=== PATIENT | male | born 1955 | race Caucasian/White ===

== ENCOUNTER → 2017-06-26 | Outpatient (CLI) | payer OTHER ==
[~2017-06-26] MED LIST: ACET-1256 PO; ALBU1NEB10 INH; AMLO-110 PO; AMPHOTERICIN B NEB; AZIT250T PO; CALC0.2510 PO; CALCTAB5 PO; CLON0.5T3 PO; CLR10 PO; ERGO1TAB10 PO; FAMO20TA11 PO; MAGNTAB17 PO; METO100T14 PO; OMEG10007 PO; POTA20TA16 PO; PRED-301 PO; PSEU60TA80 PO; RIZA1TAB11 PO; SIRO0.5T PO; SULF-183 PO; TACR0.5C3 PO; TACR1CAP PO; [UNRECOGNIZED DRUG - OTHER] NEB
[2017-06-26 11:42] LABS: BLOOD UREA NITROGEN 35 mg/dl (7-18); BUN/CREATININE RATIO 13.1 (10-20); CALCIUM 8.9 mg/dl (8.5-10.1); CARBON DIOXIDE 26 mmol/L (21-32); CHLORIDE 107 mmol/L (98-107); GLUCOSE 97 mg/dl (70-99); MAGNESIUM 1.5 mg/dl (1.8-2.4); POTASSIUM 3.1 mmol/L (3.5-5.1); SODIUM 141 mmol/L (136-145)
[2017-06-26 12:29] LABS: URINE APPEARANCE CLEAR (CLEAR); URINE BILIRUBIN NEG (NEG); URINE COLOR YELLOW; URINE EPITHELIAL CELL AUTO 0-5 /lpf (0-5); URINE NITRITE NEG (NEG); UROBILINOGEN NEG (NEG)
[2017-06-26 12:31] LABS: MANUAL MICROSCOPIC REQUIRED? NO; REVIEW REQ? NO
== END | disposition home or self-care (01) ==
LOC: C.LAB 10:24
PROVIDERS: ATTEND Internal Medicine Nephrology
DX: T86.819 Unspecified complication of lung transplant (principal); Y83.0 Surgical operation with transplant of whole organ as the cause of abnormal reaction of the patient, or of later complication, without mention of misadventure at the time of the procedure

== ENCOUNTER → 2017-06-30 | Outpatient (CLI) | payer OTHER ==
--- NOTE | 2017-06-30 12:08 | DIAGNOSTIC IMAGING REPORT ---
ULTRASOUND KIDNEYS AND BLADDER CLINICAL HISTORY: Chronic kidney disease. COMPARISON STUDY: Renal ultrasound dated 02/20/2014. TECHNIQUE: Real-time, grayscale, and color flow sonography of the kidneys and bladder is performed. Images are reviewed in the transverse and longitudinal planes. FINDINGS: Kidneys: The kidneys demonstrate cortical atrophy. The right kidney measures 9.9 x 4.8 x 5.2 cm and the left kidney measures 10.1 x 4.7 x 4.6 cm. There is no hydronephrosis. No shadowing renal calculi are identified. There is no sonographic evidence of contour deforming renal mass lesion. No perinephric fluid is identified. Bladder: The bladder is normal in appearance. Bilateral ureteral jets were seen. IMPRESSION: 1. The kidneys demonstrate cortical atrophy and are without hydronephrosis. 2. The bladder is normal as visualized. Electronically signed by: Zaid Arthur M.D. 06/30/2017 12:07 PM Dictated Date/Time: 06/30/2017 12:03 PM
== END | disposition home or self-care (01) ==
LOC: C.ULTR 11:21
PROVIDERS: ATTEND Internal Medicine Nephrology
DX: T86.819 Unspecified complication of lung transplant (principal); Y83.0 Surgical operation with transplant of whole organ as the cause of abnormal reaction of the patient, or of later complication, without mention of misadventure at the time of the procedure; N18.9 Chronic kidney disease, unspecified; E83.40 Disorders of magnesium metabolism, unspecified

== ENCOUNTER → 2018-02-03 | Outpatient (CLI) | payer OTHER ==
--- NOTE | 2018-02-05 12:17 | PULMONARY FUNCTION TEST ---
Spirometry shows a severe reduction in both forced vital capacity and FEV1 with a mildly decreased FEV1/FVC ratio. The pattern would be that of moderate to severe restriction, likely combined with mild obstruction. No prior studies were available for comparison.
== END | disposition home or self-care (01) ==
LOC: C.RC 10:36
PROVIDERS: ATTEND Internal Medicine Pulmonary Disease
DX: T86.818 Other complications of lung transplant (principal); Z87.898 Personal history of other specified conditions; X58.XXXA Exposure to other specified factors, initial encounter

== ENCOUNTER → 2018-02-28 | Outpatient (CLI) | payer OTHER ==
[~2018-02-28] MED LIST changes: +POTA-639 PO; -POTA20TA16 PO
--- NOTE | 2018-02-28 12:07 | DIAGNOSTIC IMAGING REPORT ---
(CHEST) THORAX WITHOUT CT DOSE: 233.25 mGy.cm HISTORY: Lung transplant. Follow-up. TECHNIQUE: Multiaxial CT images of the chest were performed without contrast. A dose lowering technique was utilized adhering to the principles of ALARA. COMPARISON: Chest 12/08/2010. FINDINGS: The patient is status post bilateral lung transplant. Left apical densities favor scarring. No pneumothorax. Mild interstitial thickening at the left lung base. No pericardial effusions. 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 Trace left pleural effusion. Tree-in-bud nodular and a few small patchy airspace opacities seen within the base of the right lower lobe and right middle lobe with a few partially opacified right lower lobe bronchi. This is consistent with an infectious bronchiolitis/pneumonia. There is a stent within the right bronchus intermedius. There is moderate focal soft tissue thickening within the stent resulting and moderate narrowing of the stent. There is mild focal narrowing of approximately 10% within the distal left main bronchus. This likely represents the site of anastomosis from the prior lung transplant. Subtle groundglass density within the right lung apex on image 29. This is of doubtful clinical significance. No suspicious lytic or blastic osseous lesions. Old bilateral postthoracotomy changes are noted. A left jugular Port-A-Cath terminates in the distal SVC. The visualized liver and adrenal glands are unremarkable. Normal caliber aorta. The heart is borderline enlarged. This remains unchanged. No mediastinal or hilar lymphadenopathy. IMPRESSION: 1. Bilateral lung transplant. There is a stent within the right bronchus intermedius. There is a rind of soft tissue within the lumen of the stent along the periphery resulting in moderate stenosis. Bronchoscopy may help for further evaluation. There is also mild focal stenosis within the distal left mainstem bronchus corresponding to the site of anastomosis. 2. Patchy and tree-in-bud nodular opacity seen within the base of the right lower lobe and right middle lobe with a few opacified distal bronchi. This is consistent with infectious bronchiolitis and could be due to aspiration. 3. 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 4. Trace left pleural effusion. 5. Left apical density favors scarring. Electronically signed by: Kumar Lau M.D. 02/28/2018 12:05 PM Dictated Date/Time: 02/28/2018 11:51 AM
== END | disposition home or self-care (01) ==
LOC: C.CTS 11:16
PROVIDERS: ATTEND Internal Medicine Pulmonary Disease
DX: R06.02 Shortness of breath (principal); J98.09 Other diseases of bronchus, not elsewhere classified; T86.819 Unspecified complication of lung transplant; R91.8 Other nonspecific abnormal finding of lung field

== ENCOUNTER → 2018-03-08 | Outpatient (CLI) | payer OTHER ==
--- NOTE | 2018-03-09 23:20 | PULMONARY FUNCTION TEST ---
Spirometry showed a severe reduction in both forced vital capacity and FEV1 with a FEV1/FVC ratio of 74%. The pattern would be that of severe restriction, possibly combined with mild obstruction. The history given is that the patient is post-lung transplant. Comparison with prior study done 02/03/2018 shows slight increase in forced vital capacity and FEV1, but not a significant change. These results are improved compared with prior study done 12/01/2016 and 10/06/2016. Advise clinical correlation.
== END | disposition home or self-care (01) ==
LOC: C.RC 11:04
PROVIDERS: ATTEND Internal Medicine Pulmonary Disease
DX: T86.818 Other complications of lung transplant (principal); Z87.898 Personal history of other specified conditions; Y83.6 Removal of other organ (partial) (total) as the cause of abnormal reaction of the patient, or of later complication, without mention of misadventure at the time of the procedure

== ENCOUNTER 2021-08-26 23:34 | Inpatient (IN) ==
--- NOTE | 2021-08-27 00:07 | Emergency Department Note ---
History of Present Illness General Chief complaint: Respiratory Problems Stated complaint: HAVING A HARD TIME BREATHING Time Seen by Provider: 08/27/21 00:03 Source: patient and family (Sister) History of Present Illness Provider complaint: Short of breath Onset (ago): hour(s) Location: chest Severity: severe Pain Consistency: + constant Maximum Pain Intensity: 9 Quality: + other (Short of breath) Relieved By: + other (Oxygen) Associated symptoms: + cough, + headaches and + shortness of breath; no chest pain, no fever/chills or no nausea/vomiting This is a 66-year-old male status post bilateral lung transplantation in 2011 due to idiopathic pulmonary fibrosis presenting with shortness of breath starting several hours ago. The patient's sister and the patient are both providing history. He developed a cough approximately 3 to 4 days ago. He has had no fevers. He is not vaccinated for COVID-19. His chief ultrasound technologist did not feel he was strong enough for it. He is currently undergoing radiation treatment to his head for squamous cell carcinoma. Today he started get short of breath which has gotten progressively worse. He was short of breath last night but was doing well throughout the day. He then started having some shortness of breath at 10 PM. He is not on oxygen at home. He denies any chest pain, abdominal pain, vomiting or diarrhea. He does state that both of his legs have been swollen over the past 2 days but he denies any pain. He has had no history of PE or DVT. He does complain of pain to his head from the squamous cell cancer. He is on OxyContin but states he has not been taking it. Home Medications Medication Instructions Recorded Confirmed Type azithromycin 250 mg tablet 250 mg PO .COMPLEX 10/30/19 08/27/21 History cetirizine 10 mg tablet 10 mg PO DAILY 10/30/19 08/27/21 History ergocalciferol (vitamin D2) 1,250 50,000 units PO .COMPLEX 10/30/19 08/27/21 History mcg (50,000 unit) capsule famotidine 20 mg tablet 20 mg PO BID 10/30/19 08/27/21 History magnesium chloride 64 mg 128 mg PO TID tab 10/30/19 08/27/21 History (magnesium chloride) tablet,delayed release metoprolol tartrate 100 mg tablet 100 mg PO BID 10/30/19 08/27/21 History omega-3 fatty acids 1,000 mg 1,000 mg PO DAILY 10/30/19 08/27/21 History capsule (Fish Oil Concentrate) potassium chloride 20 mEq 40 meq PO BID tab 10/30/19 08/27/21 History tablet,extended release(part/cryst) prednisone 5 mg tablet 5 mg PO DAILY 10/30/19 08/27/21 History sirolimus 0.5 mg tablet See Rx Instructions PO .COMPLEX 10/30/19 08/27/21 History sulfamethoxazole 400 1 tab PO .COMPLEX 10/30/19 08/27/21 History mg-trimethoprim 80 mg tablet amitriptyline 10 mg tablet See Rx Instructions PO DAILY 04/16/21 08/27/21 History cholecalciferol (vitamin D3) 50 50 mcg PO DAILY tab 04/16/21 08/27/21 History mcg (2,000 unit) tablet lorazepam 0.5 mg tablet 0.5 mg PO DAILY PRN 04/16/21 08/27/21 History tacrolimus 0.5 mg capsule, 2 mg PO .COMPLEX cap 04/16/21 08/27/21 History immediate-release amlodipine 2.5 mg tablet 5 mg PO DAILY #180 tab 08/26/21 08/27/21 Rx Allergies Allergy/AdvReac Type Severity Reaction Status Date / Time colistin Allergy Mild cough Verified 08/27/21 00:42 sirolimus [From Rapamune] Allergy Mild Rash Verified 08/27/21 00:42 tiotropium AdvReac Severe UNABLE TO Verified 08/27/21 00:42 VOID fluticasone AdvReac Intermediate THRUSH,RASH Verified 08/27/21 00:42 HEADACHE salmeterol AdvReac Intermediate THRUSH,RASH Verified 08/27/21 00:42 HEADACHE aspirin AdvReac Unknown CONTRAINDIC Verified 08/27/21 00:42 ATED NSAIDS (Non-Steroidal AdvReac Unknown CONTRAINDIC Verified 08/27/21 00:42 Anti-Inflamma ATED Past Med/Surg History Medical History Acute renal injury Benign hypertension (04/03/13) CVA (cerebral infarction) (03/03/14) Double lung transplant (04/03/13) Hypertensive emergency (03/03/14) Interstitial lung disease Migraine Osteoporosis, unspecified Right sided weakness SCC (squamous cell carcinoma) Situational depression 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 Surgical History History of colonoscopy History of lung transplant lung transplant , double S/P ear surgery Family History Father Hypertension Kidney disease Mother Hypertension Kidney disease Stroke Denies family history of Ovarian cancer Prostate cancer Myocardial infarction Breast cancer Colorectal cancer Social History Smoking Status: Never smoker Second Hand Exposure: No; Hx Alcohol Use: No Hx Substance Use: No Preferred Language: Salvadorean Communication Ability: Effective Visual Impairment: No Limitations Hearing Ability: Normal Continuous Conveyor Screen Drier Required: No Beliefs That Will Affect Care: None marital status: Single Current Living Situation: Family current occupational status: disabled Feels Safe at Home: Yes Childhood Exposure to Second-Hand Smoke: No caffeine: Yes during the past year weight has: increased > 10 lbs Dental Care, Regularly: No Physical Activity Frequency: Daily Seatbelt Use: always Sunscreen Use: Yes Review of Systems See HPI for pertinent positives & negatives. and A total of 10 systems reviewed and were otherwise negative Physical Exam Vital Signs Vital Signs - 24 hr 08/26/21 23:43 08/26/21 23:57 08/27/21 00:00 Temperature 36.5 C Temperature Source Temporal Artery Scan Pulse Rate 127 H 153 H 152 H Pulse Rate from SpO2 Sensor 152 H 152 H Respiratory Rate 40 H 34 H 35 H Blood Pressure 126/92 Blood Pressure Mean 103 Pulse Oximetry 85 L 83 L 88 L Oxygen Delivery Method Room Air Oxygen Flow Rate Sepsis Recent Fever Within 48 Hours No Sepsis New/Unexplained Change in Mental Status N/A Sepsis Action Taken by Nursing No Action Required 08/27/21 00:15 08/27/21 00:17 08/27/21 00:30 Temperature Temperature Source Pulse Rate 151 H 150 H Pulse Rate from SpO2 Sensor 149 H 150 H Respiratory Rate 26 H 31 H Blood Pressure Blood Pressure Mean Pulse Oximetry 96 97 Oxygen Delivery Method Oxymask Oxygen Flow Rate Sepsis Recent Fever Within 48 Hours Sepsis New/Unexplained Change in Mental Status Sepsis Action Taken by Nursing 08/27/21 00:45 08/27/21 01:00 08/27/21 01:15 Temperature Temperature Source Pulse Rate 144 H 137 H 135 H Pulse Rate from SpO2 Sensor 144 H 137 H 136 H Respiratory Rate 21 Blood Pressure 113/85 110/79 104/73 Blood Pressure Mean 94 89 83 Pulse Oximetry 97 97 96 Oxygen Delivery Method Oxymask Oxymask Oxymask Oxygen Flow Rate 6 6 6 Sepsis Recent Fever Within 48 Hours Sepsis New/Unexplained Change in Mental Status Sepsis Action Taken by Nursing 08/27/21 01:30 08/27/21 01:45 08/27/21 02:03 Temperature Temperature Source Pulse Rate 134 H 141 H 145 H Pulse Rate from SpO2 Sensor 134 H Respiratory Rate 25 H 20 Blood Pressure 115/79 120/82 120/82 Blood Pressure Mean 91 94 Pulse Oximetry 97 95 Oxygen Delivery Method Oxymask Oxymask Oxygen Flow Rate 6 6 Sepsis Recent Fever Within 48 Hours Sepsis New/Unexplained Change in Mental Status Sepsis Action Taken by Nursing Constitutional: Vital signs reviewed. Cannot speak in full sentences. Tachypneic. Cachectic. Ill-appearing. Eyes: Pupils are equal round reactive to light. Conjunctiva are noninjected. ENT: Pharynx is clear without erythema or exudate. Mucous membranes are moist. Neck supple without meningeal signs. Respiratory: Left lung with scattered rales in the lower field. Right lung has diffuse rhonchi and rales. Breath sounds are equal bilaterally. Cardiovascular: Tachycardic. Heart rate 150. GI: Soft, nondistended and nontender. Bowel sounds are present. Musculoskeletal: Bilateral pitting edema to the lower extremities. No lower extremity tenderness. Integumentary: No cyanosis. or jaundice. Squamous cell carcinoma to the head. Neurological: The patient is awake and alert. No focal deficits. Psychiatric: Normal affect. Not anxious appearing. Course Administered Medications Discontinued Medications Diltiazem HCl (Diltiazem Hcl 5 Mg/Ml 5 Ml Vial) 2.5 mg IV NOW STA Stop: 08/27/21 00:37 Last Admin: 08/27/21 00:43 Dose: 2.5 mg Documented by: [id number] Cosigned by: [id number] Diltiazem HCl (Diltiazem Hcl 5 Mg/Ml 5 Ml Vial) 2.5 mg IV ONCE ONE Stop: 08/27/21 00:54 Last Admin: 08/27/21 00:54 Dose: 2.5 mg Documented by: [id number] Cosigned by: [id number] Fentanyl Citrate (Fentanyl Citrate 100 Mcg/2 Ml Vial) 50 mcg IV NOW STA Stop: 08/27/21 01:19 Last Admin: 08/27/21 02:02 Dose: 50 mcg Documented by: [id number] Piperacillin Sod/Tazobactam Sod (Zosyn) 4.5 gm in 120 mls @ 240 mls/hr IV NOW ONE Stop: 08/27/21 01:05 Last Admin: 08/27/21 00:43 Dose: 240 mls/hr Documented by: [id number] Azithromycin 500 mg/ Dextrose 255 mls @ 127.5 mls/hr IV NOW STA Stop: 08/27/21 02:35 Last Admin: 08/27/21 01:29 Dose: 127.5 mls/hr Documented by: [id number] Linezolid (Zyvox) 600 mg in 300 mls @ 200 mls/hr IV NOW STA Stop: 08/27/21 02:13 Last Admin: 08/27/21 01:29 Dose: 200 mls/hr Documented by: [id number] Magnesium Sulfate/Dextrose (Magnesium Sulfate / D5w) 1 gm in 100 mls @ 100 mls/hr IV NOW STA Stop: 08/27/21 01:58 Last Admin: 08/27/21 02:02 Dose: 100 mls/hr Documented by: [id number] Metoprolol Tartrate (Metoprolol Tartrate 1 Mg/Ml Vial) 2.5 mg IV NOW STA Stop: 08/27/21 01:43 Last Admin: 08/27/21 02:03 Dose: 2.5 mg Documented by: [id number] Ondansetron HCl (Ondansetron Inj 2 Mg/Ml 2 Ml Vial) 4 mg IV NOW STA Stop: 08/27/21 01:20 Last Admin: 08/27/21 02:42 Dose: 4 mg Documented by: [id number] Ticagrelor (Ticagrelor 90 Mg Tab) 180 mg PO ONE ONE Stop: 08/27/21 01:31 Last Admin: 08/27/21 02:19 Dose: 180 mg Documented by: [id number] Critical Care Time Critical Care Time: Yes Total Critical Care Time: 80 I have personally spent approximately 80 minutes of critical care time in the direct management of this patient. This includes bedside care, interpretation of diagnostic studies, and testing, discussion with consultants, patient, and family members, and other required patient management activities. These minutes are in excess of all separately billable procedures. Medical Decision Making Differential Diagnosis Pneumonia, COVID-19, respiratory failure, hypoxemia, ARDS, transplant rejection Medical Records Attestation: I reviewed the patient's medical records. I did perform a limited focused review of portions of the patient's old chart on the electronic medical record. The patient has had no recent pertinent visits to this hospital. He was seen by his primary care doctor earlier this month. Home Medications Current Medication List: was personally reviewed by me Laboratory Data Attestation: I reviewed the patient's lab results. Result diagrams: 08/27/21 00:14 08/27/21 00:14 Lab Results 08/27/21 08/27/21 08/27/21 Range/Units 00:14 00:14 00:14 WBC 12.09 H (4.8-10.8) K/uL RBC 3.94 L (4.7-6.1) M/uL Hgb 11.0 L (14.0-18.0) g/dL POC Hgb (14.0-18.0) g/dl Hct 34.7 L (42-52) % POC Hct (42-52) % MCV 88.1 (80-100) fL MCH 27.9 (25-34) pg MCHC 31.7 L (32-36) g/dL RDW Std Deviation 46.2 (36.4-46.3) fL RDW Coeff of Parish 14.2 (11.5-14.5) % Plt Count 393 (130-400) K/uL MPV 9.8 (7.4-10.4) fL Immature Gran % (Auto) 0.2 % Neut % (Auto) 79.3 % Lymph % (Auto) 12.1 % Maury % (Auto) 8.1 % Eos % (Auto) 0.1 % Baso % (Auto) 0.2 % Neut # (Auto) 9.60 H (1.4-6.5) K/uL Lymph # (Auto) 1.46 (1.2-3.4) K/uL Maury # (Auto) 0.98 H (0.11-0.59) K/uL Eos # (Auto) 0.01 (0-0.5) K/uL Baso # (Auto) 0.02 (0-0.2) K/uL Immature Gran # (Auto) 0.02 (0.00-0.02) K/uL Echinocytes 1+ PT 11.0 (9.0-12.0) Seconds INR 1.1 (0.9-1.1) APTT 25.9 (21.0-31.0) Seconds PTT Ratio 1.0 D-Dimer [id number] H* (0-500) ug/L FEU POC Sodium (135-144) mmol/L Sodium 135 L (136-145) mmol/L POC Potassium (3.3-5.0) mmol/L Potassium 4.7 (3.5-5.1) mmol/L POC Chloride (101-112) mmol/L Chloride 105 (98-107) mmol/L Carbon Dioxide 16 L (21-32) mmol/L POC Total CO2 (24-31) mmol/L Anion Gap 14.0 H (3-11) POC Anion Gap (16-25) mmol/L POC BUN (7-18) mg/dl BUN 50 H (7-18) mg/dl Creatinine 4.42 H (0.6-1.4) mg/dl POC Creatinine (0.6-1.3) mg/dl Est Cr Clr Drug Dosing Not Reportable Est GFR ( Amer) 15.2 ml/min Est GFR (Non-Af Amer) 13.1 ml/min BUN/Creatinine Ratio 11.4 (10-20) Glucose 273 H (70-99) mg/dl POC Glucose (other) (70-99) mg/dl Calcium 8.5 (8.5-10.1) mg/dl POC Ioniz Calcium Kathryn (1.12-1.32) mmol/l Magnesium 1.5 L (1.8-2.4) mg/dl Total Bilirubin 0.4 (0.2-1) mg/dl AST 98 H (15-37) U/L ALT 36 (12-78) U/L Alkaline Phosphatase 406 H (45-117) U/L Troponin I 15.400 H* (0-0.045) ng/ml C-Reactive Protein 9.60 H (0-0.29) mg/dl Total Protein 7.0 (6.4-8.2) gm/dl Albumin 2.6 L (3.4-5.0) gm/dl Globulin 4.4 H (2.5-4.0) gm/dl Albumin/Globulin Ratio 0.6 L (0.9-2) Adenovirus (PCR) (NotDetected) B. pertussis DNA (PCR) (NotDetected) B.parapertussis DNA PCR (NotDetected) C. pneumoniae DNA (PCR) (NotDetected) Coronavirus OC43 (PCR) (NotDetected) Coronavirus HKU1 (PCR) (NotDetected) Coronavirus 229E (PCR) (NotDetected) COVID-19 Eval Order SARS-CoV-2 (PCR) (NotDetected) Coronavirus NL63 (PCR) (NotDetected) Human Metapneumovir PCR (NotDetected) Influenza Type A (PCR) (NotDetected) Influ A Molecular Assay Influenza Type B (PCR) (NotDetected) Influ B Molecular Assay M. pneumoniae (PCR) (NotDetected) Parainfluenza 1 (PCR) (NotDetected) Parainfluenza 2 (PCR) (NotDetected) Parainfluenza 3 (PCR) (NotDetected) Parainfluenza 4 (PCR) (NotDetected) RSV (PCR) (NotDetected) Entero/Rhino (PCR) (NotDetected) 08/27/21 08/27/21 08/27/21 Range/Units 00:20 00:25 00:25 WBC (4.8-10.8) K/uL RBC (4.7-6.1) M/uL Hgb (14.0-18.0) g/dL POC Hgb 11.9 L (14.0-18.0) g/dl Hct (42-52) % POC Hct 35 L (42-52) % MCV (80-100) fL MCH (25-34) pg MCHC (32-36) g/dL RDW Std Deviation (36.4-46.3) fL RDW Coeff of Parish (11.5-14.5) % Plt Count (130-400) K/uL MPV (7.4-10.4) fL Immature Gran % (Auto) % Neut % (Auto) % Lymph % (Auto) % Maury % (Auto) % Eos % (Auto) % Baso % (Auto) % Neut # (Auto) (1.4-6.5) K/uL Lymph # (Auto) (1.2-3.4) K/uL Maury # (Auto) (0.11-0.59) K/uL Eos # (Auto) (0-0.5) K/uL Baso # (Auto) (0-0.2) K/uL Immature Gran # (Auto) (0.00-0.02) K/uL Echinocytes PT (9.0-12.0) Seconds INR (0.9-1.1) APTT (21.0-31.0) Seconds PTT Ratio D-Dimer (0-500) ug/L FEU POC Sodium 135 (135-144) mmol/L Sodium (136-145) mmol/L POC Potassium 4.7 (3.3-5.0) mmol/L Potassium (3.5-5.1) mmol/L POC Chloride 105 (101-112) mmol/L Chloride (98-107) mmol/L Carbon Dioxide (21-32) mmol/L POC Total CO2 16 L (24-31) mmol/L Anion Gap (3-11) POC Anion Gap 21.0 (16-25) mmol/L POC BUN 44 H (7-18) mg/dl BUN (7-18) mg/dl Creatinine (0.6-1.4) mg/dl POC Creatinine 4.5 H (0.6-1.3) mg/dl Est Cr Clr Drug Dosing Est GFR ( Amer) ml/min Est GFR (Non-Af Amer) ml/min BUN/Creatinine Ratio (10-20) Glucose (70-99) mg/dl POC Glucose (other) 271 H (70-99) mg/dl Calcium (8.5-10.1) mg/dl POC Ioniz Calcium Kathryn 1.10 L (1.12-1.32) mmol/l Magnesium (1.8-2.4) mg/dl Total Bilirubin (0.2-1) mg/dl AST (15-37) U/L ALT (12-78) U/L Alkaline Phosphatase (45-117) U/L Troponin I (0-0.045) ng/ml C-Reactive Protein (0-0.29) mg/dl Total Protein (6.4-8.2) gm/dl Albumin (3.4-5.0) gm/dl Globulin (2.5-4.0) gm/dl Albumin/Globulin Ratio (0.9-2) Adenovirus (PCR) (NotDetected) B. pertussis DNA (PCR) (NotDetected) B.parapertussis DNA PCR (NotDetected) C. pneumoniae DNA (PCR) (NotDetected) Coronavirus OC43 (PCR) (NotDetected) Coronavirus HKU1 (PCR) (NotDetected) Coronavirus 229E (PCR) (NotDetected) COVID-[address] Eval Order RESPNP at [facility] SARS-CoV-2 (PCR) (NotDetected) Coronavirus NL63 (PCR) (NotDetected) Human Metapneumovir PCR (NotDetected) Influenza Type A (PCR) (NotDetected) Influ A Molecular Assay Cancelled Influenza Type B (PCR) (NotDetected) Influ B Molecular Assay Cancelled M. pneumoniae (PCR) (NotDetected) Parainfluenza 1 (PCR) (NotDetected) Parainfluenza 2 (PCR) (NotDetected) Parainfluenza 3 (PCR) (NotDetected) Parainfluenza 4 (PCR) (NotDetected) RSV (PCR) (NotDetected) Entero/Rhino (PCR) (NotDetected) 08/27/21 Range/Units 00:25 WBC (4.8-10.8) K/uL RBC (4.7-6.1) M/uL Hgb (14.0-18.0) g/dL POC Hgb (14.0-18.0) g/dl Hct (42-52) % POC Hct (42-52) % MCV (80-100) fL MCH (25-34) pg MCHC (32-36) g/dL RDW Std Deviation (36.4-46.3) fL RDW Coeff of Parish (11.5-14.5) % Plt Count (130-400) K/uL MPV (7.4-10.4) fL Immature Gran % (Auto) % Neut % (Auto) % Lymph % (Auto) % Maury % (Auto) % Eos % (Auto) % Baso % (Auto) % Neut # (Auto) (1.4-6.5) K/uL Lymph # (Auto) (1.2-3.4) K/uL Maury # (Auto) (0.11-0.59) K/uL Eos # (Auto) (0-0.5) K/uL Baso # (Auto) (0-0.2) K/uL Immature Gran # (Auto) (0.00-0.02) K/uL Echinocytes PT (9.0-12.0) Seconds INR (0.9-1.1) APTT (21.0-31.0) Seconds PTT Ratio D-Dimer (0-500) ug/L FEU POC Sodium (135-144) mmol/L Sodium (136-145) mmol/L POC Potassium (3.3-5.0) mmol/L Potassium (3.5-5.1) mmol/L POC Chloride (101-112) mmol/L Chloride (98-107) mmol/L Carbon Dioxide (21-32) mmol/L POC Total CO2 (24-31) mmol/L Anion Gap (3-11) POC Anion Gap (16-25) mmol/L POC BUN (7-18) mg/dl BUN (7-18) mg/dl Creatinine (0.6-1.4) mg/dl POC Creatinine (0.6-1.3) mg/dl Est Cr Clr Drug Dosing Est GFR ( Amer) ml/min Est GFR (Non-Af Amer) ml/min BUN/Creatinine Ratio (10-20) Glucose (70-99) mg/dl POC Glucose (other) (70-99) mg/dl Calcium (8.5-10.1) mg/dl POC Ioniz Calcium Kathryn (1.12-1.32) mmol/l Magnesium (1.8-2.4) mg/dl Total Bilirubin (0.2-1) mg/dl AST (15-37) U/L ALT (12-78) U/L Alkaline Phosphatase (45-117) U/L Troponin I (0-0.045) ng/ml C-Reactive Protein (0-0.29) mg/dl Total Protein (6.4-8.2) gm/dl Albumin (3.4-5.0) gm/dl Globulin (2.5-4.0) gm/dl Albumin/Globulin Ratio (0.9-2) Adenovirus (PCR) Not Detected (NotDetected) B. pertussis DNA (PCR) Not Detected (NotDetected) B.parapertussis DNA PCR Not Detected (NotDetected) C. pneumoniae DNA (PCR) Not Detected (NotDetected) Coronavirus OC43 (PCR) Not Detected (NotDetected) Coronavirus HKU1 (PCR) Not Detected (NotDetected) Coronavirus 229E (PCR) Not Detected (NotDetected) COVID-19 Eval Order SARS-CoV-2 (PCR) Not Detected (NotDetected) Coronavirus NL63 (PCR) Not Detected (NotDetected) Human Metapneumovir PCR Not Detected (NotDetected) Influenza Type A (PCR) Not Detected (NotDetected) Influ A Molecular Assay Influenza Type B (PCR) Not Detected (NotDetected) Influ B Molecular Assay M. pneumoniae (PCR) Not Detected (NotDetected) Parainfluenza 1 (PCR) Not Detected (NotDetected) Parainfluenza 2 (PCR) Not Detected (NotDetected) Parainfluenza 3 (PCR) Not Detected (NotDetected) Parainfluenza 4 (PCR) Not Detected (NotDetected) RSV (PCR) DETECTED A* (NotDetected) Entero/Rhino (PCR) Not Detected (NotDetected) Imaging Data Attestation: I personally reviewed and interpreted this imaging study as follows: My Impression: Chest x-ray per my interpretation shows bilateral infiltrates consistent with multifocal pneumonia. ECG Data Attestation: I personally reviewed and interpreted this ECG as follows: Indication: + SOB/dyspnea Rate (beats per minute): 152 Rhythm: + sinus tachycardia ECG ST segments: + ST depression (Lateral) and + ST elevation (Inferior) ECG Findings: no PVCs Comparison ECG Date: from (03/26/2016) Change: the following changes noted (ST segment changes are new) Additional Comments: Repeat twelve-lead EKG performed at 1:27 AM per my interpretation shows sinus tachycardia at rate of 134 bpm. He does have ST elevations in the inferior leads with ST depressions in the high lateral and lateral leads as well as the anterior leads. MDM Narrative I was called in emergently by the nurse to see the patient who is hypoxemic and in respiratory distress. I did evaluate the patient as noted above. He was placed on an oxygen mask and his O2 saturation went up to 92%. His port was accessed. I did place an order for continuous cardiac monitoring. The monitor showed sinus tachycardia at a rate of 150 bpm. I did order and personally review the patient's 12-lead EKG as described above. He has sinus tachycardia with ST depressions laterally. He also has ST elevations inferiorly. Possible a flutter. He is not having any chest discomfort. I did treat him with Cardizem 5 mg IV. His heart rate did come down to 137. I did order and personally reviewed the images of the patient's chest x-ray as described above. He appears to have a multifocal pneumonia. I did order blood cultures. He was treated with IV Zosyn, azithromycin and Zyvox. I did immediately initiate the transfer process to [facility] in [place] where his lung transplant doctors are. The secretary office clerk was able to call them but they did not call back for some time. I did ask her to call them back and she was on hold for 45 minutes and hung up on several times. I did order and review the patient's blood work as noted in the electronic medical record. His white blood cell count is 12,000. He has chronic anemia with a hemoglobin of 11. Platelet count is within normal limits. Electrolytes demonstrate a CO2 of 16. BUN is 50 and creatinine is 4.4. Glucose is elevated to 73. Magnesium is 1.5. C- reactive protein is 9.6. His D-dimer is 23,000 and his troponin is 15.4. I did discuss case with Dr. Ruiz of interventional cardiology. He is currently in the process of taking another patient to the cardiac catheterization lab. He recommended treating patient with Brilinta and IV heparin. He will take him to the catheterization lab after he is done with the other patient. He did not recommend TNKase at this time. The patient is aspirin allergic. I did treat him with IV heparin and Brilinta. I did discuss risks and benefits of anticoagulation with the patient and his sister and they gave consent for the medication. I did speak to Dr. Peña of pulmonology from [facility] in [place]. She agreed with my our management plan and did not have any additional recommendations. She did state that there was no ICU bed available at this time and that the patient would need further stabilization before transfer. I did discuss the case with the ICU team and Dr. Kirkpatrick. The patient was given additional Lopressor IV and his heart rate came down to 107. He was given a fluid bolus with normal saline IV as well. Dr. Ruiz did later come back to see the patient. He ordered another EKG which showed improvement. He had a discussion with the patient, his sister and Dr. Kirkpatrick and decided that emergent catheterization would not be in his best interest. He was therefore admitted to the ICU. Impression & Plan Acute respiratory failure with hypoxia, Multifocal pneumonia, Acute kidney injury superimposed on CKD, Hypomagnesemia, ST elevation PR (STEMI), RSV (respiratory syncytial virus pneumonia), Immunocompromised patient, D-dimer, elevated Discharge Plan Visit Data Chief Complaint: Respiratory Problems Stated Complaint: HAVING A HARD TIME BREATHING ED Provider: Tucker Byrne Discharge Problem: Acute respiratory failure with hypoxia, Multifocal pneumonia, Acute kidney injury superimposed on CKD, Hypomagnesemia, ST elevation PR (STEMI), RSV (respiratory syncytial virus pneumonia), Immunocompromised patient, D-dimer, elevated Patient Disposition: Admitted As Inpatient Forms Stand Alone Forms: My [facility] Prescriptions Prescriptions: No Action tacrolimus 0.5 mg capsule 2 mg PO .COMPLEX RF: 0 amitriptyline 10 mg tablet See Rx Instructions PO DAILY RF: 0 cholecalciferol (vitamin D3) 50 mcg (2,000 unit) tablet 50 mcg PO DAILY RF: 0 lorazepam 0.5 mg tablet 0.5 mg PO DAILY PRN (Reason: Anxiety) RF: 0 amlodipine 2.5 mg tablet 5 mg PO DAILY Qty: 180 RF: 1 azithromycin 250 mg tablet 250 mg PO .COMPLEX RF: 0 cetirizine 10 mg tablet 10 mg PO DAILY RF: 0 ergocalciferol (vitamin D2) 50,000 unit capsule 50,000 units PO .COMPLEX RF: 0 famotidine 20 mg tablet 20 mg PO BID RF: 0 omega-3 fatty acids [Fish Oil Concentrate] 1,000 mg capsule 1,000 mg PO DAILY RF: 0 magnesium chloride 64 mg tablet,delayed release (DR/EC) 128 mg PO TID RF: 0 metoprolol tartrate 100 mg tablet 100 mg PO BID RF: 0 potassium chloride 20 mEq tablet,ER particles/crystals 40 meq PO BID RF: 0 prednisone 5 mg tablet 5 mg PO DAILY RF: 0 sirolimus 0.5 mg tablet See Rx Instructions PO .COMPLEX RF: 0 sulfamethoxazole-trimethoprim 400-80 mg tablet 1 tab PO .COMPLEX RF: 0 Referrals Referrals: Bret Matthews MD [Primary Care Provider] -
[2021-08-27 00:34] LABS: iSTAT Creatinine 4.5 mg/dl (0.6-1.3); iSTAT Hemoglobin 11.9 g/dl (14.0-18.0); iSTAT Ionized Calcium 1.1 mmol/l (1.12-1.32); iSTAT Potassium 4.7 mmol/L (3.3-5.0)
[2021-08-27 00:35] LABS: Hematocrit (blood only) 34.7 % (42-52); Mean Corpuscular Hemoglobin 27.9 pg (25-34); Mean Corpuscular Hgb Conc 31.7 g/dL (32-36); Mean Corpuscular Volume 88.1 fL (80-100); Mean Platelet Volume 9.8 fL (7.4-10.4); Platelet Count 393 K/uL (130-400); RDW Coefficient of Variation 14.2 % (11.5-14.5); RDW Standard Deviation 46.2 fL (36.4-46.3); Red Blood Count 3.94 M/uL (4.7-6.1); White Blood Count 12.09 K/uL (4.8-10.8)
[2021-08-27] MEDS ORDERED: PIPERACILLIN/TAZOBACTAM 4.5 GM/120 ML BAG IV ONE (00:36)
[2021-08-27] MEDS ORDERED: PIPERACILL/TAZOBAC CONSULT ACTIVE PRN (00:36)
[2021-08-27] MEDS ORDERED: LINEZOLID CONSULT ACTIVE PRN (00:36)
[2021-08-27] MEDS ORDERED: LINEZOLID 600 MG/300 ML D5W IV STA (00:36)
[2021-08-27] MEDS ORDERED: dilTIAZem HCl 5 MG/ML 5 ML VIAL IV STA (00:36)
[2021-08-27] MEDS ORDERED: AZITHROMYCIN 500 MG in DEXTROSE 5% 250 ML IV STA ×2 (00:36→02:52)
[2021-08-27] MEDS ORDERED: LINEZOLID 600 MG/300 ML BAG IV STA (00:44)
[2021-08-27 00:50] LABS: Basophils # (auto) 0.02 K/uL (0-0.2); Basophils % (auto) 0.2 %; Echinocytes 1+; Eosinophils # (auto) 0.01 K/uL (0-0.5); Eosinophils % (auto) 0.1 %; Immature Granulocytes # (auto) 0.02 K/uL (0.00-0.02); Immature Granulocytes % (auto) 0.2 %; Lymphocytes # (auto) 1.46 K/uL (1.2-3.4); Lymphocytes % (auto) 12.1 %; Monocytes # (auto) 0.98 K/uL (0.11-0.59); Monocytes % (auto) 8.1 %; Neutrophils % (auto) 79.3 %
[2021-08-27 00:53] LABS: Alanine Aminotransferase 36 U/L (12-78); Albumin Level 2.6 gm/dl (3.4-5.0); Aspartate Aminotransferase 98 U/L (15-37); BUN Creatinine Ratio 11.4 (10-20); Blood Urea Nitrogen 50 mg/dl (7-18); Calcium 8.5 mg/dl (8.5-10.1); Carbon Dioxide 16 mmol/L (21-32); Chloride 105 mmol/L (98-107); Est GFR (African American) 15.2 ml/min; Est GFR (Non-African American) 13.1 ml/min; Glucose 273 mg/dl (70-99); Magnesium 1.5 mg/dl (1.8-2.4); Potassium 4.7 mmol/L (3.5-5.1); Sodium 135 mmol/L (136-145)
[2021-08-27] MEDS ORDERED: dilTIAZem HCl 5 MG/ML 5 ML VIAL IV ONE (00:53)
[2021-08-27 00:59] LABS: INR 1.1 (0.9-1.1); Partial Thromboplastin Time 25.9 Seconds (21.0-31.0)
[2021-08-27] MEDS ORDERED: MAGNESIUM SULFATE / D5W 1 GM/100 ML BAG IV STA (00:59)
[2021-08-27 01:11] LABS: Albumin Globulin Ratio 0.6 (0.9-2); Alkaline Phosphatase 406 U/L (45-117); Bilirubin,Total 0.4 mg/dl (0.2-1); Globulin 4.4 gm/dl (2.5-4.0)
[2021-08-27] MEDS ORDERED: fentaNYL citrate 100 MCG/2 ML VIAL IV STA (01:18)
[2021-08-27 01:19] LABS: D Dimer 23100 ug/L FEU (0-500)
[2021-08-27] MEDS ORDERED: ONDANSETRON INJ 2 MG/ML 2 ML VIAL IV STA (01:19)
[2021-08-27 01:25] LABS: Adenovirus PCR Not Detected (NotDetected); Bordetella parapertussis PCR Not Detected (NotDetected); Bordetella pertussis PCR Not Detected (NotDetected); Chlamydia pneumoniae PCR Not Detected (NotDetected); Coronavirus 229E PCR Not Detected (NotDetected); Coronavirus CoV-2 (COVID19)PCR Not Detected (NotDetected); Coronavirus HKU1 PCR Not Detected (NotDetected); Coronavirus NL63 PCR Not Detected (NotDetected); Coronavirus OC43PCR Not Detected (NotDetected); Human Metapneumovirus PCR Not Detected (NotDetected); Influenza A PCR Not Detected (NotDetected); Influenza B PCR Not Detected (NotDetected); Mycoplasma pneumoniae PCR Not Detected (NotDetected); Parainfluenza Virus 1 PCR Not Detected (NotDetected); Parainfluenza Virus 2 PCR Not Detected (NotDetected); Parainfluenza Virus 3 PCR Not Detected (NotDetected); Parainfluenza Virus 4 PCR Not Detected (NotDetected); Rhinovirus/Enterovirus PCR Not Detected (NotDetected)
[2021-08-27] MEDS ORDERED: Heparin IV Adult Wt-Based Low-Dose WITH Bolus Protocol STA (01:30)
[2021-08-27] MEDS ORDERED: TICAGRELOR 90 MG TAB PO ONE (01:30)
[2021-08-27 01:32] LABS: Respiratory Syncytial VirusPCR DETECTED (NotDetected)
[2021-08-27] MEDS ORDERED: METOPROLOL TARTRATE 1 MG/ML VIAL IV STA (01:42)
[2021-08-27] MEDS ORDERED: SODIUM CHLORIDE 0.9% 1000ML 250 ML IV ONE (01:42)
[2021-08-27] MEDS ORDERED: HEPARIN SOD (PORCINE) 1000 UNIT/ML IV ONE ×2 (01:46→12:10)
[2021-08-27] MEDS ORDERED: HEPARIN SODIUM/DEXTROSE 25,000 UNITS/500 ML BAG IV SCH (02:00)
--- NOTE | 2021-08-27 02:54 | History & Physical Report ---
Date of Service August 27, 2021 Assessment & Plan (1) Acute respiratory failure with hypoxia: (2) Multifocal pneumonia: (3) Acute kidney injury superimposed on CKD: (4) ST elevation [place] (STEMI): (5) RSV (respiratory syncytial virus pneumonia): (6) Hypomagnesemia: (7) Immunocompromised patient: (8) SCC (squamous cell carcinoma): (9) Situational depression: (10) Chronic disease anemia: (11) Benign hypertension: Plan: 66 yo M Hx idiopathic pulmonary fibrosis s/p bilateral lung transplant on chronic immunosuppressive and steroid therapy, chronic SCC of the scalp, hypertension, CKD, migraine headache admitted for STEMI and acute hypoxic respiratory failure suspected to be 2/2 community acquired pneumonia. Neuro: Anxiety: Continue home lorazepam 0.5mg PO daily as needed for anxiety. Cardiac - STEMI: Presented with complaints of worsening SOB. Troponin elevated to 15; EKG noted to have ST elevations in inferior leads with reciprocal depressions in lateral leads. Patient started on heparin gtt. Dr. Ruiz notified; due to renal function will optimize medically until renal function improves. A1c and lipid panel ordered. Echo in AM. Would benefit from DAPT; contraindication listed to aspirin in the chart. Patient is on metoprolol tartrate 100mg BID. Continue this with as needed Lopressor IV for tachycardia if BP can tolerate. Respiratory - Acute hypoxic respiratory failure: In the setting of Hx bilateral lung transplant for idiopathic pulmonary fibrosis. Patient is on sirolimus/tacrolimus chronically for immunosuppression, as well as daily oral prednisone therapy. Currently requiring 6L Oxymask; does not wear oxygen at baseline. Titrate supplemental oxygen as needed. Patient is amenable to intubation should that be necessary. XR with bilateral infiltrates suggesting pneumonia. D dimer elevated to 23,000 with frequent travel by car to [place] for medical care. Unable to perform CT PE protocol due to acute renal failure. Is on Heparin gtt given STEMI. Case discussed with Dr. Angelica Leonard with [facility] Department of Pulmonary, Allergy and Critical Care Medicine. Recommended azithromycin/vancomycin/Zosyn for antibiotic coverage. Vancomycin deferred in favor of Linezolid given TRINA. Scheduled Xopenex nebs q6h ordered with nebs q2h prn SOB. Solumedrol 60mg IV q8h ordered. Idiopathic pulmonary fibrosis s/p bilateral lung transplant: Chronically on tacrolimus/sirolimus for immune suppression. Holding PO steroids in favor of IV Solumedrol 60mg q8h. GI - No present GI concerns. Heart healthy, DM2 diet. Famotidine 20mg IV BID for GI ppx. RENAL/LYTES - TRINA on CKD: History of arterionephrosclerosis. Patient has a baseline creatinine of 1.9-2.3; presents today with creatinine 4.42. BUN/Cr ratio <20. Did receive NSS 250cc bolus in ER. Urine and serum lytes/osmolality ordered. Avoiding renal toxic medications as able. Nephrology consulted. Hypomagnesemia/Hypocalcemia: Mg 1.5. ICal 1.10 on admission. Received Mag Sulfate 1g IV in ER. Continue to replace lytes as needed. - No concerns at this time. ENDO - Hyperglycemia: Noted on admission to have BSG 273. Patient does not have a history of DM2; is on daily oral prednisone and will be receiving stress dose steroids while admitted. ICU hyperglycemia protocol ordered. Will receive 6u Lantus now with SSI and adjustment as needed. DM2 diet. A1c pending. Adrenal insufficiency: History of chronic oral prednisone therapy. Given this and acute significant illness, as well as respiratory status, Solumedrol 60mg IV q8h ordered. HEME - Hgb baseline ~12; on admission with Hgb 11.0. No history of bloody/dark stools, hematuria, hemoptysis, hematemesis. Daily CBC in the setting of Heparin gtt. ID - RSV; CAP in immunocompromised patient: Patient's illness started on Wednesday and became acutely worse last evening prompting ER visit. Currently requiring 6L Oxymask. Patient is on sirolimus/tacrolimus chronically for immunosuppression given Hx lung transplant. Presented with WBC count 12.09, elevated CRP. RSV positive on viral panel; COVID 19 testing negative. CXR with bilateral lower lung hazy opacities with concern for pneumonia. Azithromycin/Zosyn/Linezolid as described above. Blood cultures collected. INTEGUMENTARY - SCC scalp: Chronic issue, follows with Dermatology in [place] and has received both Mohs surgery in July and radiation for this. No complaints at this time. No evidence of cellulitis. DVT PROPHYLAXIS - Heparin gtt. CODE STATUS: CONDITIONAL Patient does NOT desire defibrillation or chest compressions in the event of a cardiac arrest. He is otherwise amenable to other cardiac interventions such as pacing, catheterization, and ACLS medications. He is amenable to intubation and mechanical ventilation in the event of impending respiratory failure requiring intubation. This decision was discussed with the patient with his daughter in attendance. History of Present Illness Chief Complaint: shortness of breath Primary Care Provider: Bret Matthews MD 66 yo M Hx idiopathic pulmonary fibrosis s/p bilateral lung transplant on chronic immunosuppressive therapy, chronic SCC of the scalp, hypertension, CKD, migraine headache presented to the ER for several days of cough with development of shortness of breath late last evening around 10 PM. Over the weekend also reports that he had poor p.o. intake secondary to illness, and in general has relatively poor p.o. intake. Patient himself denies fevers but admits to chills over the weekend. Denies nausea, vomiting, diarrhea, constipation, urinary symptoms. Denies chest pains. Allergies Allergy/AdvReac Type Severity Reaction Status Date / Time colistin Allergy Mild cough Verified 08/27/21 00:42 sirolimus [From Rapamune] Allergy Mild Rash Verified 08/27/21 00:42 tiotropium AdvReac Severe UNABLE TO Verified 08/27/21 00:42 VOID fluticasone AdvReac Intermediate THRUSH,RASH Verified 08/27/21 00:42 HEADACHE salmeterol AdvReac Intermediate THRUSH,RASH Verified 08/27/21 00:42 HEADACHE aspirin AdvReac Unknown CONTRAINDIC Verified 08/27/21 00:42 ATED NSAIDS (Non-Steroidal AdvReac Unknown CONTRAINDIC Verified 08/27/21 00:42 Anti-Inflamma ATED Home Medications Medication Instructions Recorded Confirmed Type azithromycin 250 mg tablet 250 mg PO .COMPLEX 10/30/19 08/27/21 History cetirizine 10 mg tablet 10 mg PO DAILY 10/30/19 08/27/21 History ergocalciferol (vitamin D2) 1,250 50,000 units PO .COMPLEX 10/30/19 08/27/21 History mcg (50,000 unit) capsule famotidine 20 mg tablet 20 mg PO BID 10/30/19 08/27/21 History magnesium chloride 64 mg 128 mg PO TID tab 10/30/19 08/27/21 History (magnesium chloride) tablet,delayed release metoprolol tartrate 100 mg tablet 100 mg PO BID 10/30/19 08/27/21 History omega-3 fatty acids 1,000 mg 1,000 mg PO DAILY 10/30/19 08/27/21 History capsule (Fish Oil Concentrate) potassium chloride 20 mEq 40 meq PO BID tab 10/30/19 08/27/21 History tablet,extended release(part/cryst) prednisone 5 mg tablet 5 mg PO DAILY 10/30/19 08/27/21 History sirolimus 0.5 mg tablet 0.5 mg PO SUTUTHSA@09 10/30/19 08/27/21 History sulfamethoxazole 400 1 tab PO .COMPLEX 10/30/19 08/27/21 History mg-trimethoprim 80 mg tablet amitriptyline 10 mg tablet See Rx Instructions PO DAILY 04/16/21 08/27/21 History cholecalciferol (vitamin D3) 50 50 mcg PO DAILY tab 04/16/21 08/27/21 History mcg (2,000 unit) tablet lorazepam 0.5 mg tablet 0.5 mg PO DAILY PRN 04/16/21 08/27/21 History tacrolimus 0.5 mg capsule, 2 mg PO Q12H cap 04/16/21 08/27/21 History immediate-release amlodipine 2.5 mg tablet 5 mg PO DAILY #180 tab 08/26/21 08/27/21 Rx Past Med/Surg History Medical History Acute renal injury Benign hypertension (04/03/13) CVA (cerebral infarction) (03/03/14) Double lung transplant (04/03/13) Hypertensive emergency (03/03/14) Interstitial lung disease Migraine Osteoporosis, unspecified Right sided weakness SCC (squamous cell carcinoma) Situational depression 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 Surgical History History of colonoscopy History of lung transplant lung transplant , double S/P ear surgery Family History Father Hypertension Kidney disease Mother Hypertension Kidney disease Stroke Denies family history of Ovarian cancer Prostate cancer Myocardial infarction Breast cancer Colorectal cancer Social History Smoking Status: Never smoker Second Hand Exposure: No; Hx Alcohol Use: No Hx Substance Use: No Preferred Language: Divehi Communication Ability: Effective Visual Impairment: No Limitations Hearing Ability: Normal Government Services Professional Required: No Beliefs That Will Affect Care: None marital status: Single Current Living Situation: Parent current occupational status: disabled Feels Safe at Home: Yes Childhood Exposure to Second-Hand Smoke: No caffeine: Yes during the past year weight has: increased > 10 lbs Dental Care, Regularly: No Physical Activity Frequency: Daily Seatbelt Use: always Sunscreen Use: Yes Assistive Devices: None Review of Systems Review of Systems: All systems reviewed & are unremarkable except as noted in HPI & below Constitutional: + malaise; no fever and no chills Respiratory: + cough and + dyspnea Cardiovascular: + edema; no chest pain and no palpitations Gastrointestinal: no abdominal pain, no constipation and no diarrhea/loose stools Physical Exam Constitutional: + ill appearing and + cachectic Eyes: PERRL, conjunctivae normal, anicteric sclerae ENMT: external ear and nose normal, oropharynx normal Neck: normal visual inspection Respiratory: diffuse bilateral rales and rhonchi, no wheezes tachypneic Saturating to 95% on 6L Oxymask Cardiovascular: Rate/Rhythm: regular rhythm and + tachycardic Heart Sounds: no murmur Extremities: + edema (2+ pitting to mid-martinez) Gastrointestinal (Abdomen): normal bowel sounds, soft, nontender, no hepatosplenomegaly Skin: scalp with several large brown keratotic plaques, no surrounding erythema or warmth, mildly tender to palpation Neurologic: AAOx3, normal speech. Bilateral UE, LE, and face without sensory or motor deficits. Psychiatric: A+Ox3, euthymic affect Results & Data Results & Data ([facility]) Vital Signs (Past 12 Hours) Vital Signs Temp Pulse Resp BP Pulse Ox 08/27/21 02:03 145 H 120/82 08/27/21 01:45 141 H 20 120/82 95 08/27/21 01:30 134 H 25 H 115/79 97 08/27/21 01:15 135 H 104/73 96 08/27/21 01:00 137 H 110/79 97 08/27/21 00:45 144 H 21 113/85 97 08/27/21 00:30 150 H 31 H 97 08/27/21 00:15 151 H 26 H 96 08/27/21 00:00 152 H 35 H 88 L 08/26/21 23:57 153 H 34 H 83 L 08/26/21 23:43 36.5 C 127 H 40 H 126/92 85 L Code Status & VTE Plan VTE Prophylaxis Plan VTE Prophylaxis will be ordered: Yes Critical Care Time 60 minutes Supervising Physician Co-Signing Physician Notes Attending addendum: I have physically seen this patient, have supervised the medical residents activities, and agree with the H&P unless as otherwise noted. Assessment and Plan: Acute respiratory failure with hypoxia/status post lung transplant/multifocal pneumonia/RSV pneumonia- Admit to the ICU Linezolid IV, Zosyn IV and azithromycin IV Xopenex every 6 hours while awake and every 2 hours when necessary. Guaifenesin extended release 12 mg p.o. twice daily Methylprednisolone 60 mg IV every 8 hours Continue tacrolimus/sirolimus TRINA on CKD- Creatinine 4.42 upon admission, with range 1.9-2.3 Status post normal saline D50 bolus in ED Careful with fluids due to concern regarding possible fluid overload and third spacing Consult nephrology Remaining orders and notations as noted Resident Activity Tracking Resident Involvement: Resident Care Provided Care Provided: Adult Hospital Medicine (1) ST elevation NH (STEMI) Involved coronary artery: unspecified coronary artery Qualified Code(s): I21.3 - ST elevation (STEMI) myocardial infarction of unspecified site
[2021-08-27] MEDS ORDERED: methylPREDNISolone 125 MG/2 ML VIAL IV STA (03:13)
[2021-08-27] MEDS ORDERED: LORazepam 0.25 MG/0.5 ML VIAL IV PRN (03:16)
[2021-08-27 03:21] LABS: Chol HDL Ratio 3; Cholesterol 146 mg/dl (0-200); HDL Cholesterol 49 mg/dl; LDL Cholesterol Calculated 67 mg/dl; Triglycerides 152 mg/dl (0-150); VLDL Cholesterol 30 mg/dl
[2021-08-27] MEDS ORDERED: LEVALBUTEROL 1.25MG/0.5ML NEB ONE (03:23)
[2021-08-27] MEDS ORDERED: LANTUS PER UNIT CHARGE SQ STA (03:23)
[2021-08-27] MEDS ORDERED: LEVALBUTEROL HCL 1.25 MG/3 ML NEB NEB STA (03:24)
[2021-08-27] MEDS ORDERED: LEVALBUTEROL HCL 1.25 MG/3 ML NEB NEB PRN (03:52)
--- NOTE | 2021-08-27 04:27 | Critical Care Consultation ---
Date of Consultation August 27, 2021 Assessment & Plan (1) ST elevation [place] (STEMI): Reason Critically Ill: 66-year-old male with history of double lung transplant 2009 and currently undergoing radiation treatment for SCC, presents to the ICU following acute hypoxic respiratory failure and STEMI. Patient poor candidate for cardiac catheterization and undergoing medical management. Patient accepted to [facility] by Dr. Angelica Medina and awaiting bed. Manage in ICU pending transfer. Neuro - [facility] ICU: Negative Cardiac - STEMIpatient with inferior ST elevations and elevated troponin of 15. Considered to be poor candidate for emergent catheterization with plan to medically manage for now. -Loaded with Brilinta and started on heparin drip -Hold on aspirin as patient has allergy -Continue with MTP 100 mg twice daily -Trend troponin, follow-up echo this a. M. -Cardiology consulted, will follow up recs -Continuous monitoring on telemetry Respiratory - Acute hypoxic respiratory failurelikely multifactorial in patient with history of double lung transplant, RSV pneumonia, and acute coronary syndrome -Cannot rule out potential pulmonary embolism as patient's D-dimer 23,000, however unable to complete CTA due to renal function. Bilateral lower extremity Doppler pending. Continue heparin drip -See ID below for treatment of pneumonia -Spoke with Dr. Angelica Medina at [facility], recommended holding tacrolimus/sirolimus due to renal function, levels pending and discontinuing Solu-Medrol in favor of prednisone -Hold on diuresis due to renal function for now -Nebs as needed -Follow-up chest x-ray this a.m. -Currently on high flow nasal cannula, wean as tolerated -Continuous monitoring on pulse ox GI -heart healthy diet RENAL/LYTES - TRINA on CKDbaseline creatinine 1.9-2, now creatinine 4.42 on admission -Patient has history of arterionephrosclerosis -Hold on fluid resuscitation in the setting of pulmonary congestion/respiratory failure -Urine and serum lites/osmolality pending -Avoid nephrotoxins renally adjust medication -Nephrology consulted, will follow up recs -Monitor routine BMPs and replete electrolytes as indicated - Strict I's and O's ENDO - HyperglycemiaICU hyperglycemic protocol, no prior history of diabetes but given stress dose steroids in ED No history of thyroid disease Squamous cell carcinomapatient completed radiation therapy, follows oncology at [facility] HEME - H&H stable, monitor routine CBC ID - Patient with WBC 12 and elevated CRP, pro-Mitchell unremarkable -RSV positive on viral panel, COVID-19 negative -Chest x-ray with bilateral opacities concerning for pneumonia -Cannot rule out potential secondary bacterial infection, continue azithromycin, linezolid, and Zosyn -Blood cultures pending, sputum culture pending LINES/IV ACCESS - Peripheral IVs DVT PROPHYLAXIS - SCDs, heparin drip I have personally spent 80 minutes of critical care time in the direct management of this patient. This is a life/limb threatening event. This includes time spent evaluating patient, direct bedside care, chart review, placing orders, interpretation of diagnostic studies, discussion with consultants, patient, and family members, as well as other required patient management activities. This time is exclusive of all separately billable procedures, and teaching time and separate from and in addition to any other critical care service time. Thank you for allowing us to participate in the care of this patient. Please refer to my attending physician's documentation for any further recommendations. (2) Acute respiratory failure with hypoxia: (3) Multifocal pneumonia: (4) Acute kidney injury superimposed on CKD: (5) Hypomagnesemia: (6) RSV (respiratory syncytial virus pneumonia): (7) Immunocompromised patient: (8) D-dimer, elevated: (9) SCC (squamous cell carcinoma): (10) Situational depression: (11) Chronic disease anemia: (12) Interstitial lung disease: (13) Benign hypertension: (14) Migraine: Supervising Physician Co-Signing Physician Notes Seen and examined. Discussed with critical care MARKUS. Discussed with nephrology and cardiology. Please see my addendum critical care note from today. History of Present Illness History of Present Illness Patient is a 66-year-old male with past medical history significant for idi opathic pulmonary fibrosis s/p bilateral lung transplant in 2009 and currently on chronic immunosuppressive therapy, chronic squamous cells carcinoma of the scalp (finished last radiation treatment 08/26/2021), HTN, CKD, and migraines. Patient presented to the emergency department earlier today with complaints of worsening shortness of breath and cough starting around 10 PM yesterday afternoon. Patient states that he normally seeks treatment at [facility] in [place] and just finished his last radiation treatment for SCC yesterday afternoon. He also states that he started to have a productive cough with blood-tinged sputum starting yesterday evening. In the emergency department patient was noted to be significantly hypoxic, tachypneic, and tachycardic. He denied any chest pain but EKG showed inferior ST elevation with lateral ST depressions and troponin was elevated at 15. Patient was given Cardizem and metoprolol to control his heart rate, however second EKG revealed worsening ST elevations. Interventional cardiology was consulted but patient was considered poor candidate for emergent catheterization, and proceeding with medical management. Patient was COVID-19 negative on PCR. He is unvaccinated as he states his payroll administrative assistant did not think that he would be able to tolerate. [employer] did reveal that the patient is positive for RSV infection. He is currently on high flow nasal cannula. He did have an elevated D-dimer of 23,000 as well, however patient's creatinine is significantly elevated at 4.4 so he did not undergo CTA chest. Bilateral lower extremity Doppler pending. Patient is conditional code with no compressions/no shocks in the event of cardiac arrest. Patient has been accepted to [facility] however they do not have any ICU beds and he is being admitted to ICU here at [facility] for further management until transfer. On exam patient is alert and oriented and sitting upright. He is mildly tachypneic and does complain of shortness of breath. He has a productive cough of blood-tinged sputum. He denies headache, dizziness, palpitations, chest pain, abdominal pain, nausea or vomiting, or diarrhea. Allergies Allergy/AdvReac Type Severity Reaction Status Date / Time colistin Allergy Mild cough Verified 08/27/21 00:42 sirolimus [From Rapamune] Allergy Mild Rash Verified 08/27/21 00:42 tiotropium AdvReac Severe UNABLE TO Verified 08/27/21 00:42 VOID fluticasone AdvReac Intermediate THRUSH,RASH Verified 08/27/21 00:42 HEADACHE salmeterol AdvReac Intermediate THRUSH,RASH Verified 08/27/21 00:42 HEADACHE aspirin AdvReac Unknown CONTRAINDIC Verified 08/27/21 00:42 ATED NSAIDS (Non-Steroidal AdvReac Unknown CONTRAINDIC Verified 08/27/21 00:42 Anti-Inflamma ATED Home Medications Medication Instructions Recorded Confirmed Type azithromycin 250 mg tablet 250 mg PO .COMPLEX 10/30/19 08/27/21 History cetirizine 10 mg tablet 10 mg PO DAILY 10/30/19 08/27/21 History ergocalciferol (vitamin D2) 1,250 50,000 units PO .COMPLEX 10/30/19 08/27/21 H istory mcg (50,000 unit) capsule famotidine 20 mg tablet 20 mg PO BID 10/30/19 08/27/21 History magnesium chloride 64 mg 128 mg PO TID tab 10/30/19 08/27/21 History (magnesium chloride) tablet,delayed release metoprolol tartrate 100 mg tablet 100 mg PO BID 10/30/19 08/27/21 History omega-3 fatty acids 1,000 mg 1,000 mg PO DAILY 10/30/19 08/27/21 History capsule (Fish Oil Concentrate) potassium chloride 20 mEq 40 meq PO BID tab 10/30/19 08/27/21 History tablet,extended release(part/cryst) prednisone 5 mg tablet 5 mg PO DAILY 10/30/19 08/27/21 History sirolimus 0.5 mg tablet 0.5 mg PO SUTUTHSA@09 10/30/19 08/27/21 History sulfamethoxazole 400 1 tab PO .COMPLEX 10/30/19 08/27/21 History mg-trimethoprim 80 mg tablet amitriptyline 10 mg tablet See Rx Instructions PO DAILY 04/16/21 08/27/21 History cholecalciferol (vitamin D3) 50 50 mcg PO DAILY tab 04/16/21 08/27/21 History mcg (2,000 unit) tablet lorazepam 0.5 mg tablet 0.5 mg PO DAILY PRN 04/16/21 08/27/21 History tacrolimus 0.5 mg capsule, 2 mg PO Q12H cap 04/16/21 08/27/21 History immediate-release amlodipine 2.5 mg tablet 5 mg PO DAILY #180 tab 08/26/21 08/27/21 Rx Patient History Medical History Acute renal injury Benign hypertension (04/03/13) CVA (cerebral infarction) (03/03/14) Double lung transplant (04/03/13) Hypertensive emergency (03/03/14) Interstitial lung disease Migraine Osteoporosis, unspecified Right sided weakness SCC (squamous cell carcinoma) Situational depression 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 Surgical History History of colonoscopy History of lung transplant lung transplant , double S/P ear surgery Family History Father Hypertension Kidney disease Mother Hypertension Kidney disease Stroke Denies family history of Ovarian cancer Prostate cancer Myocardial infarction Breast cancer Colorectal cancer Social History Smoking Status: Never smoker Second Hand Exposure: No; Do You Dip or Chew Tobacco: No; Tobacco Cessation Education Requested by Patient: No Hx Alcohol Use: No Hx Substance Use: No Preferred Language: German Communication Ability: Effective Visual Impairment: No Limitations Hearing Ability: Normal Electrical Engineering Technician Required: No Beliefs That Will Affect Care: None marital status: Single Current Living Situation: Parent current occupational status: disabled Other Information That Helps Us Care for You: No Feels Safe at Home: Yes Safety Concerns: Feels Safe At This Time Childhood Exposure to Second-Hand Smoke: No caffeine: Yes during the past year weight has: increased > 10 lbs Dental Care, Regularly: No Physical Activity Frequency: Daily Seatbelt Use: always Sunscreen Use: Yes Assistive Devices: None Review of Systems Review of Systems: All systems reviewed & are unremarkable except as noted in HPI & below Results & Data Results & Data ([facility]) Vital Signs (Past 12 Hours) Vital Signs Temp Pulse Pulse Resp BP Pulse Ox 08/27/21 03:33 118 H 32 H 89 L 08/27/21 03:30 122 H 26 H 113/81 89 L 08/27/21 03:15 117 H 30 H 120/88 89 L 08/27/21 03:00 117 H 23 90 08/27/21 02:45 125 H 33 H 106/76 92 08/27/21 02:30 125 H 27 H 118/80 91 08/27/21 02:15 123 H 28 H 92 08/27/21 02:03 145 H 120/82 08/27/21 01:45 135 H 28 H 120/82 94 08/27/21 01:30 134 H 25 H 115/79 97 08/27/21 01:15 135 H 104/73 96 08/27/21 01:00 137 H 110/79 97 08/27/21 00:45 144 H 21 113/85 97 08/27/21 00:30 150 H 31 H 97 08/27/21 00:15 151 H 26 H 96 08/27/21 00:00 152 H 35 H 88 L 08/26/21 23:57 153 H 34 H 83 L 08/26/21 23:43 36.5 C 127 H 40 H 126/92 85 L Coding Level of Care Code Critical Care ea addt'l 30 min Diagnoses Acute respiratory failure with hypoxia J96.01 Multifocal pneumonia J18.9 Acute kidney injury superimposed on CKD N17.9; N18.[address] elevation [place] (STEMI) I21.3 Involved coronary artery: unspecified coronary artery RSV (respiratory syncytial virus pneumonia) J12.1 Immunocompromised patient D84.9 D-dimer, elevated R79.89 SCC (squamous cell carcinoma) C44.92 Situational depression F43.21 Chronic disease anemia D63.8 Interstitial lung disease J84.9 Benign hypertension I10 Migraine G43.909 (1) ST elevation NV (STEMI) Involved coronary artery: unspecified coronary artery Qualified Code(s): I21.3 - ST elevation (STEMI) myocardial infarction of unspecified site
[2021-08-27] MEDS ORDERED: CARBOHYDRATES FOR HYPOGLYCEMIA PO PRN (05:38)
[2021-08-27] MEDS ORDERED: DEXTROSE 50% 50 ML SYRINGE IV PRN (05:38)
[2021-08-27] MEDS ORDERED: PHARMACY GLYCEMIC MGMT CONSULT PRN (05:38)
[2021-08-27] MEDS ORDERED: ICU PROTOCOL FOR HYPERGLYCEMIA PRN (05:38)
[2021-08-27] MEDS ORDERED: POLYETHYLENE (MIRALAX) 17 GM PACK PO PRN (05:38)
[2021-08-27] MEDS ORDERED: GLUCAGON FOR INJ 1 MG VIAL SQ PRN (05:38)
[2021-08-27] MEDS ORDERED: NITROGLYCERIN SL 0.4 MG/TAB TAB SL PRN (05:38)
[2021-08-27] MEDS ORDERED: GLUCOSE 40% GEL 15 GM TUBE PO PRN (05:38)
[2021-08-27] MEDS ORDERED: LORazepam 0.5 MG TAB PO PRN (05:38)
[2021-08-27] MEDS ORDERED: GLUCOSE 10 TABS/TUBE PO PRN (05:38)
[2021-08-27] MEDS ORDERED: INSULIN PROTOCOL GOAL RANGE ONE (06:25)
[2021-08-27] MEDS ORDERED: STAT IV Infusion **Titration per Protocol STA (06:25)
[2021-08-27] MEDS ORDERED: DC ALL PREVIOUSLY ORDERED DIABETES MEDS ONE (06:25)
[2021-08-27] MEDS ORDERED: INSULIN REGULAR 250 UNITS in SODIUM CHLORIDE 0.9% 247.5 ML IV SCH (06:45)
[2021-08-27] MEDS ORDERED: NovoLIN-R BOLUS FROM BAG IV ONE (06:45)
--- NOTE | 2021-08-27 06:55 | XRay Report ---
XR chest 1V portable CLINICAL HISTORY: Dyspnea. Double lung transplant. COMPARISON STUDY: Chest CT March 10, 2021. FINDINGS: Left internal jugular [id number] is in place. Postoperative findings within the chest ar e noted. A stent within the bronchus intermedius is noted. Small right pleural effusion is noted. The re is no pneumothorax. Extensive bilateral airspace opacities are present. There is mild enlargement of the cardiac silhouette. IMPRESSION: 1. Extensive bilateral airspace opacities which favor pneumonia. Pulmonary edema could appear similar although is considered less likely. Radiographic follow-up is recommended to ensure resolution. 2. Small right pleural effusion. ACT 112: Negative or not required by law. Electronically signed by: Rene Hamilton M.D. 08/27/2021 6:53 AM
[2021-08-27] MEDS: LEVALBUTEROL HCL 1.25 MG/3 ML NEB INH SCH ×3 (07:03→19:05)
[2021-08-27] MEDS ORDERED: INSULIN ASPART 100 UNITS/ML 3 ML PEN SC SCH (07:30)
--- NOTE | 2021-08-27 07:39 | Hospitalist Progress Note ---
Date of Service August 27, 2021 Assessment & Plan (1) Acute respiratory failure with hypoxia: Plan: Acute hypoxic respiratory failure: In the setting of Hx bilateral lung transplant for idiopathic pulmonary fibrosis. Patient is on sirolimus/tacrolimus chronically for immunosuppression, as well as daily oral prednisone therapy. Currently requiring 6L Oxymask; does not wear oxygen at baseline. Titrate supplemental oxygen as needed. Patient is amenable to intubation should that be necessary. (2) Multifocal pneumonia: Plan: XR with bilateral infiltrates suggesting pneumonia. D dimer elevated to 23,000 with frequent travel by car to [place] for medical care. Unable to perform CT PE protocol due to acute renal failure. Is on Heparin gtt given STEMI. Case discussed with Dr. Angelica Leonard with [facility] Department of Pulmonary, Allergy and Critical Care Medicine. Recommended azithromycin/vancomycin/Zosyn for antibiotic coverage. Vancomycin deferred in favor of Linezolid given TRINA. Scheduled Xopenex nebs q6h ordered with nebs q2h prn SOB. Solumedrol 60mg IV q8h ordered. (3) Acute kidney injury superimposed on CKD: Plan: TRINA on CKD: History of arterionephrosclerosis. Patient has a baseline creatinine of 1.9-2.3; presents today with creatinine 4.42. BUN/Cr ratio <20. Did receive NSS 250cc bolus in ER. Urine and serum lytes/osmolality ordered. Avoiding renal toxic medications as able. Nephrology consulted. Hypomagnesemia/Hypocalcemia: Mg 1.5. ICal 1.10 on admission. Received Mag Sulfate 1g IV in ER. Continue to replace lytes as needed. (4) ST elevation [place] (STEMI): Plan: STEMI: Presented with complaints of worsening SOB. Troponin elevated to 15; EKG noted to have ST elevations in inferior leads with reciprocal depressions in lateral leads. Patient started on heparin gtt. Dr. Ruiz notified; due to renal function will optimize medically until renal function improves. A1c and lipid panel ordered. Echo in AM. Would benefit from DAPT; contraindication listed to aspirin in the chart. Patient is on metoprolol tartrate 100mg BID. Continue this with as needed Lopressor IV for tachycardia if BP can tolerate. (5) RSV (respiratory syncytial virus pneumonia): Plan: Same as above with multifocal pneumonia. (6) Hypomagnesemia: (7) Immunocompromised patient: (8) SCC (squamous cell carcinoma): Plan: Patient received last dose of radiation for SCC yesterday at his [facility]. Admission and Anticipated Discharge Date Admission Date: August 27, 2021 Supervising Physician Co-Signing Physician Notes I personally examined the patient and verified all todd points of history and exam, discussed case, and agree with decision making with Dr Lombardo Feeling better than earlier. Wondering if he can eat. Still waiting on a bed at [facility]. No other new complaints. Vitals noted, in general he is awake and alert sitting upright in bed not overtly in respiratory distress at this time, in discussion with resident physician patient appears much more comfortable than when rounded on earlier. HEENT normocephalic atraumatic mucous membranes moist. Cachectic appearing with multiple skin lesions. Lungs diminished throughout no rales rhonchi or wheezes good effort. Sepsis/pneumonia/RSV/hypoxic respiratory failurecontinue current management STEMI event seems to have completed. No chest pain. Med management. Transfer for tertiary care once available ARF superimposed on what appears to be about stage III CKDmed management, supportive care. Appreciate nephrology input Otherwise as above Subjective Saw the patient at bedside this morning and afternoon. He was doing better when we saw him in the afternoon, still on high flow oxygen. His only complaint was that he was hungry and wanted something to eat. Not currently short of breath or with chest pain. Review of Systems Constitutional: + malaise; no fever and no chills Respiratory: + cough and + dyspnea Cardiovascular: + edema; no chest pain and no palpitations Gastrointestinal: no abdominal pain, no constipation and no diarrhea/loose stools Results & Data Results & Data ([facility]) Vital Signs (Past 12 Hours) Vital Signs Temp Pulse Pulse Resp BP BP Pulse Ox 08/27/21 06:15 115 H 29 H 129/96 91 08/27/21 05:55 110 H 28 H 94 08/27/21 05:41 117 H 26 H 129/81 91 08/27/21 04:15 96/73 L 95 08/27/21 03:45 115 H 36 H 101/68 92 08/27/21 03:33 118 H 32 H 89 L 08/27/21 03:30 122 H 26 H 113/81 89 L 08/27/21 03:15 117 H 30 H 120/88 89 L 08/27/21 03:00 117 H 23 90 08/27/21 02:45 125 H 33 H 106/76 92 08/27/21 02:30 125 H 27 H 118/80 91 08/27/21 02:15 123 H 28 H 92 08/27/21 02:03 145 H 120/82 08/27/21 01:45 135 H 28 H 120/82 94 08/27/21 01:30 134 H 25 H 115/79 97 08/27/21 01:15 135 H 104/73 96 08/27/21 01:00 137 H 110/79 97 08/27/21 00:45 144 H 21 113/85 97 08/27/21 00:30 150 H 31 H 97 08/27/21 00:15 151 H 26 H 96 08/27/21 00:00 152 H 35 H 88 L 08/26/21 23:57 153 H 34 H 83 L 08/26/21 23:43 36.5 C 127 H 40 H 126/92 85 L Resident Activity Tracking Resident Involvement: Resident Care Provided Care Provided: Adult Hospital Medicine (1) ST elevation [place] (STEMI) Involved coronary artery: unspecified coronary artery Qualified Code(s): I21.3 - ST elevation (STEMI) myocardial infarction of unspecified site
[2021-08-27 07:44] LABS: Estimated Average Glucose 134 mg/dl; Hemoglobin A1C 6.3 % (4.5-5.6)
[2021-08-27] MEDS ORDERED: FAMOTIDINE 20 MG in SYRINGE 3 ML IV SCH (08:00)
[2021-08-27] MEDS ORDERED: PIPERACILLIN/TAZOBACTAM 3.375 GM in DEXTROSE 5% 100 ML IV SCH (08:00)
[2021-08-27] MEDS: MAGNESIUM CHLORIDE 64MG DELAYED REL TAB PO SCH ×2 (08:02→15:50)
[2021-08-27 08:26] LABS: Basophils # (auto) 0.01 K/uL (0-0.2); Basophils % (auto) 0.1 %; Hematocrit (blood only) 35.4 % (42-52); Hemoglobin 11.4 g/dL (14.0-18.0); Immature Granulocytes # (auto) 0.04 K/uL (0.00-0.02); Immature Granulocytes % (auto) 0.2 %; Lymphocytes # (auto) 0.76 K/uL (1.2-3.4); Lymphocytes % (auto) 3.9 %; Mean Corpuscular Hemoglobin 27.7 pg (25-34); Mean Corpuscular Hgb Conc 32.2 g/dL (32-36); Mean Corpuscular Volume 85.9 fL (80-100); Mean Platelet Volume 9.7 fL (7.4-10.4); Monocytes # (auto) 0.42 K/uL (0.11-0.59); Monocytes % (auto) 2.2 %; Neutrophils # (auto) 18.08 K/uL (1.4-6.5); Neutrophils % (auto) 93.6 %; Platelet Count 407 K/uL (130-400); RDW Coefficient of Variation 14.2 % (11.5-14.5); RDW Standard Deviation 44.9 fL (36.4-46.3); Red Blood Count 4.12 M/uL (4.7-6.1); White Blood Count 19.31 K/uL (4.8-10.8)
[2021-08-27 08:44] LABS: BUN Creatinine Ratio 12.3 (10-20); Calcium 8.5 mg/dl (8.5-10.1); Creatinine Clr Calc Pharmacy 13.9 ml/min; Est GFR (African American) 15.7 ml/min; Est GFR (Non-African American) 13.5 ml/min; Potassium 4.8 mmol/L (3.5-5.1)
[2021-08-27] MEDS ORDERED: METOPROLOL TARTRATE 100 MG TAB PO SCH (09:00)
[2021-08-27] MEDS ORDERED: TACROLIMUS 1 MG CAP PO SCH (09:00)
[2021-08-27] MEDS ORDERED: predniSONE 5 MG TAB PO SCH (09:00)
[2021-08-27] MEDS ORDERED: POTASSIUM CHLORIDE CRTAB 20 MEQ TABCR PO SCH (09:00)
[2021-08-27 09:01] LABS: Thyroid Stimulating Hormone 0.787 uIu/ml (0.300-4.500); Troponin I 36.1 ng/ml (0-0.045)
--- NOTE | 2021-08-27 09:13 | Ultrasound Report ---
BILATERAL LOWER EXTREMITY VENOUS DOPPLER HISTORY: Acute shortness of breath DVT? COMPARISON STUDY: None. FINDINGS: Right lower extremity occlusive and partially occlusive deep venous thrombus is noted exten ding from the popliteal vein into the posterior tibial, anterior tibial and peroneal veins. Left lowe r extremity occlusive and partially occlusive deep venous thrombus is noted extending from the poplit eal vein into the posterior tibial, anterior tibial and peroneal veins. IMPRESSION: Bilateral lower extremity deep venous thrombi as above. ACT 112: Negative or not required by law. Electronically signed by: Archie Tubbs M.D. 08/27/2021 9:12 AM
[2021-08-27] MEDS ORDERED: DOXYCYCLINE HYCLATE 100 MG in DEXTROSE 5% 100 ML IV SCH (10:00)
--- NOTE | 2021-08-27 10:06 | XCELERA ---
[id number]
--- NOTE | 2021-08-27 10:16 | Nephrology Consultation ---
Date of Consultation August 27, 2021 Assessment & Plan (1) Acute kidney injury superimposed on CKD: * TRINA likely hemodynamically mediated and related to STEMI/pneumonia * Volume status and electrolyte balance are acceptable. 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 CKD due to interstitial scarring related to immunosuppressive therapy (3) ST elevation [place] (STEMI): * Cath held due to pneumonia, TRINA/CKD * Cardiology is following (4) Multifocal pneumonia: * COVID negative * RSV + (5) Lung transplant status, bilateral: * Probable transfer to [facility] once bed available History of Present Illness Reason for Consultation: TRINA/CKD Attending Physician: Dariusz Banuelos, History of Present Illness Mr. Kasper is a 66 year old white male who is seen at the request of Dr. Mathew for evaluation of TRINA/CKD. Patient was evaluated in the ICU and plan of care discussed w/ the ICU team. Mr. Kasper has a complex medical history which is summarized as follows: interstitial lung disease s/p bilateral lung transplant [facility] 2009, CKD due to interstitial scarring related to calcineurin therapy. Baseline Cr has been 1.9 (01/2012) w/ EGFR 36 cc/min. 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 Mr. Kasper presented to the [facility] last evening for evaluation of dyspnea. He was diagnosed w/ multifocal pneumonia, STEMI and TRINA/CKD. Serum Cr was was 4.4 on admission. Allergies Allergy/AdvReac Type Severity Reaction Status Date / Time colistin Allergy Mild cough Verified 08/27/21 00:42 sirolimus [From Rapamune] Allergy Mild Rash Verified 08/27/21 00:42 tiotropium AdvReac Severe UNABLE TO Verified 08/27/21 00:42 VOID fluticasone AdvReac Intermediate THRUSH,RASH Verified 08/27/21 00:42 HEADACHE salmeterol AdvReac Intermediate THRUSH,RASH Verified 08/27/21 00:42 HEADACHE aspirin AdvReac Unknown CONTRAINDIC Verified 08/27/21 00:42 ATED NSAIDS (Non-Steroidal AdvReac Unknown CONTRAINDIC Verified 08/27/21 00:42 Anti-Inflamma ATED Home Medications Medication Instructions Recorded Confirmed Type azithromycin 250 mg tablet 250 mg PO .COMPLEX 10/30/19 08/27/21 History cetirizine 10 mg tablet 10 mg PO DAILY 10/30/19 08/27/21 History ergocalciferol (vitamin D2) 1,250 50,000 units PO .COMPLEX 10/30/19 08/27/21 History mcg (50,000 unit) capsule famotidine 20 mg tablet 20 mg PO BID 10/30/19 08/27/21 History magnesium chloride 64 mg 128 mg PO TID tab 10/30/19 08/27/21 History (magnesium chloride) tablet,delayed release metoprolol tartrate 100 mg tablet 100 mg PO BID 10/30/19 08/27/21 History omega-3 fatty acids 1,000 mg 1,000 mg PO DAILY 10/30/19 08/27/21 History capsule (Fish Oil Concentrate) potassium chloride 20 mEq 40 meq PO BID tab 10/30/19 08/27/21 History tablet,extended release(part/cryst) prednisone 5 mg tablet 5 mg PO DAILY 10/30/19 08/27/21 History sirolimus 0.5 mg tablet 0.5 mg PO SUTUTHSA@09 10/30/19 08/27/21 History sulfamethoxazole 400 1 tab PO .COMPLEX 10/30/19 08/27/21 History mg-trimethoprim 80 mg tablet amitriptyline 10 mg tablet See Rx Instructions PO DAILY 04/16/21 08/27/21 History cholecalciferol (vitamin D3) 50 50 mcg PO DAILY tab 04/16/21 08/27/21 History mcg (2,000 unit) tablet lorazepam 0.5 mg tablet 0.5 mg PO DAILY PRN 04/16/21 08/27/21 History tacrolimus 0.5 mg capsule, 2 mg PO Q12H cap 04/16/21 08/27/21 History immediate-release amlodipine 2.5 mg tablet 5 mg PO DAILY #180 tab 08/26/21 08/27/21 Rx Patient History Medical History Acute renal injury Benign hypertension (04/03/13) CVA (cerebral infarction) (03/03/14) Double lung transplant (04/03/13) Hypertensive emergency (03/03/14) Interstitial lung disease Migraine Osteoporosis, unspecified Right sided weakness SCC (squamous cell carcinoma) Situational depression 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 Surgical History History of colonoscopy History of lung transplant lung transplant , double S/P ear surgery Family History Father Hypertension Kidney disease Mother Hypertension Kidney disease Stroke Denies family history of Ovarian cancer Prostate cancer Myocardial infarction Breast cancer Colorectal cancer Social History Smoking Status: Never smoker Second Hand Exposure: No; Do You Dip or Chew Tobacco: No; Tobacco Cessation Education Requested by Patient: No Hx Alcohol Use: No Hx Substance Use: No Preferred Language: Swedish Communication Ability: Effective Visual Impairment: No Limitations Hearing Ability: Normal Acid Adjuster Required: No Beliefs That Will Affect Care: None marital status: Single Current Living Situation: Parent current occupational status: disabled Other Information That Helps Us Care for You: No Feels Safe at Home: Yes Safety Concerns: Feels Safe At This Time Childhood Exposure to Second-Hand Smoke: No caffeine: Yes during the past year weight has: increased > 10 lbs Dental Care, Regularly: No Physical Activity Frequency: Daily Seatbelt Use: always Sunscreen Use: Yes Assistive Devices: None Review of Systems Constitutional: + weakness Eyes: no problem reported Ear, Nose, Mouth, Throat: no problem reported Respiratory: + dyspnea Cardiovascular: no chest pain, no palpitations and no edema Gastrointestinal: no abdominal pain, no nausea, no vomiting and no diarrhea/loose stools Genitourinary: no dysuria, no urinary hesitancy or no hematuria Musculoskeletal: no back pain Integumentary: no rash Neurologic: no falls, no dizziness and no confusion Physical Exam Constitutional: + ill appearing and + cachectic Eyes: PERRL, conjunctivae normal, anicteric sclerae ENMT: external ear and nose normal, oropharynx normal Neck: normal visual inspection Respiratory: diffuse bilateral rales and rhonchi, no wheezes tachypneic Saturating to 91% on 40 L/min high flow NC Cardiovascular: Rate/Rhythm: regular rhythm and + tachycardic Heart Sounds: no murmur Extremities: + edema (trace LE swelling) Gastrointestinal (Abdomen): normal bowel sounds, soft, nontender, no hepatosplenomegaly Skin: scalp with several large brown keratotic plaques Results & Data ([facility]) Vital Signs (Past 12 Hours) Vital Signs Temp Pulse Pulse Resp BP BP Pulse Ox 08/27/21 09:00 117 H 30 H 121/88 90 08/27/21 08:56 122 H 08/27/21 08:00 118 H 42 H 109/76 90 08/27/21 07:03 122 H 28 H 86 L 08/27/21 07:00 120 H 36 H 117/90 89 L 08/27/21 06:15 115 H 29 H 129/96 91 08/27/21 05:55 110 H 28 H 94 08/27/21 05:41 117 H 26 H 129/81 91 08/27/21 04:15 96/73 L 95 08/27/21 03:45 115 H 36 H 101/68 92 08/27/21 03:33 118 H 32 H 89 L 08/27/21 03:30 122 H 26 H 113/81 89 L 08/27/21 03:15 117 H 30 H 120/88 89 L 08/27/21 03:00 117 H 23 90 08/27/21 02:45 125 H 33 H 106/76 92 08/27/21 02:30 125 H 27 H 118/80 91 08/27/21 02:15 123 H 28 H 92 08/27/21 02:03 145 H 120/82 08/27/21 01:45 135 H 28 H 120/82 94 08/27/21 01:30 134 H 25 H 115/79 97 08/27/21 01:15 135 H 104/73 96 08/27/21 01:00 137 H 110/79 97 08/27/21 00:45 144 H 21 113/85 97 08/27/21 00:30 150 H 31 H 97 08/27/21 00:15 151 H 26 H 96 08/27/21 00:00 152 H 35 H 88 L 08/26/21 23:57 153 H 34 H 83 L 08/26/21 23:43 36.5 C 127 H 40 H 126/92 85 L Laboratory Results Laboratory Tests 08/27/21 08/27/21 08/27/21 00:14 00:20 07:57 WBC 19.31 H Hgb 11.4 L Hct 35.4 L Plt Count 407 H POC Sodium 135 Sodium POC Potassium 4.7 Potassium POC Chloride 105 Chloride Carbon Dioxide POC Total CO2 16 L POC BUN 44 H BUN Creatinine POC Creatinine 4.5 H POC Glucose (other) 271 H POC Ioniz Calcium Kathryn 1.10 L Troponin I 15.400 H* 08/27/21 07:57 WBC Hgb Hct Plt Count POC Sodium Sodium 134 L POC Potassium Potassium 4.8 POC Chloride Chloride 103 Carbon Dioxide 19 L POC Total CO2 POC BUN BUN 53 H Creatinine 4.31 H POC Creatinine POC Glucose (other) POC Ioniz Calcium Kathryn Troponin I PG Care Time/CCT Total # of Minutes Spent Total Time Spent with Patient: Total time spent is greater than 50% in coordination of care (as documented) at patient's floor/unit and/or counseling patient: Coding Level of Care Code 15376 Inpt Consult Level 5 Diagnoses Acute kidney injury superimposed on CKD N17.9; N18.9 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
[2021-08-27 10:44] LABS: Partial Thromboplastin Ratio 1.2; Partial Thromboplastin Time 32.8 Seconds (21.0-31.0)
--- NOTE | 2021-08-27 11:19 | Communication Note ---
Date of Service: August 27, 2021 Patient was seen and examined. EMR was reviewed. He was discussed on multidisciplinary rounds as well as with the bedside critical care nurse. Also reviewed with cardiology and nephrology. Patient presents with multiple medical issues including ST elevation [place], acute renal failure, and diffuse pulmonary infiltrates in the setting of lung transplant. 1. Acute [place]: Discussed with cardiology. Unclear timing of the event. His ejection fraction is definitely reduced on echocardiogram with regional wall motion abnormalities. Given his elevated creatinine he is not a candidate for cardiac catheterization. As he is not experiencing chest pain, he does not meet criteria for systemic thrombolysis currently. We will continue medical management with beta-deirdre, antiplatelet agents, and LAY inhibitor as tolerated (currently being held due to kidney function) 2. Pulmonary infiltrates and immunocompromise patient. Unclear if this represents atypical infection, complications due to his lung transplant, issues related to immune suppression, infection, or other inflammatory conditions such as alveolar hemorrhage or atypical pulmonary edema. The patient has been accepted at [facility] but there is not an ICU bed available. We will continue to check with them on a daily basis as we do not have ID consultation here in the complexity of his medical issues likely requires higher level of care. We will continue supplemental oxygen. There is no therapy indicated for his RSV. He is been placed on broad-spectrum antibiotics. We will trend clinical picture. Could consider bronchoscopy but the patient's high oxygen requirement makes this somewhat problematic. We do not have prior respiratory cultures available demonstrating resistant organisms. The patient is amenable to potential noninvasive positive pressure ventilation if needed and transitioning him to BiPAP but could certainly be an option. Should he fail he would be willing to consider intubation but again does not want CPR cardioversion or ACLS interventions. 3. Acute renal failure: Discussed with nephrology. I met with the patient at bedside and asked him if he would want dialysis. He adamantly shakes his head and says no he would not want to undergo dialysis. Given the magnitude of his medical issues I think this is reasonable. We will continue supportive care in the hopes that his kidney function turns around. His acid-base status and electrolytes will continue to be monitored as well. Patient's overall prognosis is quite guarded at this point time. We will continue supportive care. Should the patient progressed to multiorgan system failure, discussion of treatment options and palliative care would be appropriate. An additional 45 minutes of critical care time was spent in evaluation management and stabilization of this critically ill patient with multiorgan system dysfunction/failure Coding Level of Care Code Critical Care ea addt'l 30 min Comment Additional 40 minutes critical care time
--- NOTE | 2021-08-27 11:47 | Cardiology Consultation ---
Date of Consultation August 27, 2021 Assessment & Plan (1) ACS (acute coronary syndrome): 2. Post bilateral lung transplant 3. Acute hypoxic respiratory failure, question multifocal pneumonia, RSV 4. Severe LV dysfunction, EF 20-25% 5. Acute on chronic renal failure 6. Bilateral acute DVT 7. Head/scalp SCC post XRT last 08/26/2021 8. Questionable paroxysmal atrial flutter Patient appears to have had a recent anterior OK, exact timing unclear now with severe new LV dysfunction. Patient is chest pain-free currently and hemodynamically and electrically stable. Volume status difficult to assess but at this point do not feel hypoxia secondary to heart failure. Cardiac event has happened. He has no ongoing cardiac symptoms and would defer cardiac catheterization with patient's acute renal failure and inability to lie flat. Coronary angiography could be considered sometime in future if renal function improves or emergently if new chest pain/hemodynamic instability. For medical management of ACS recommend: Trend troponin until peak Continue heparin infusion Start aspirin and clopidogrel. Likely transition to dual therapy long-term with clopidogrel, anticoagulation for acute DVT Continue metoprolol. Hold off on LAY/ARB Start statin We will continue to follow. History of Present Illness Attending Physician: Dariusz Banuelos DO History of Present Illness Mr. Kasper is a 66-year-old man post bilateral lung transplant 2011 for interstitial lung disease seen in the setting of acute coronary syndrome and new severe LV dysfunction. Patient followed by [facility] post lung transplant on chronic calcineurin inhibitors, steroids and antibiotics. CNI related CKD with baseline creatinine around 2.0. 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 Other issues include hypertension, anemia, GERD. Presented to [facility] ED with increasing shortness of breath after returning home from XRT therapy in [place]. Initially hypoxic, tachycardic with heart rate in the 150s. ECG sinus tachycardia versus a flutter with borderline inferior ST elevations. With AV ericka agents subsequent ECG showed sinus tachycardia with inferior elevations and deep anterolateral ST depressions. Initial troponin 15.4. Started on heparin and with additional rate control inferior ST elevations resolved. Patient remained chest pain-free, hemodynamically stable throughout course. In the setting of TRINA urgent cardiac catheterization deferred. This morning remains chest pain-free. On high flow nasal cannula O2. Being treated for multifocal pneumonia. Covid negative, RSV positive. Lower extremity venous duplex showed bilateral popliteal DVT. Echocardiogram today shows severe LV dysfunction, EF 20 to 25% with anterior/lateral and apical severe hypokinesis to akinesis. Normal RV function. Allergies Allergy/AdvReac Type Severity Reaction Status Date / Time colistin Allergy Mild cough Verified 08/27/21 00:42 sirolimus [From Rapamune] Allergy Mild Rash Verified 08/27/21 00:42 tiotropium AdvReac Severe UNABLE TO Verified 08/27/21 00:42 VOID fluticasone AdvReac Intermediate THRUSH,RASH Verified 08/27/21 00:42 HEADACHE salmeterol AdvReac Intermediate THRUSH,RASH Verified 08/27/21 00:42 HEADACHE aspirin AdvReac Unknown CONTRAINDIC Verified 08/27/21 00:42 ATED NSAIDS (Non-Steroidal AdvReac Unknown CONTRAINDIC Verified 08/27/21 00:42 Anti-Inflamma ATED Home Medications Medication Instructions Recorded Confirmed Type azithromycin 250 mg tablet 250 mg PO .COMPLEX 10/30/19 08/27/21 History cetirizine 10 mg tablet 10 mg PO DAILY 10/30/19 08/27/21 History ergocalciferol (vitamin D2) 1,250 50,000 units PO .COMPLEX 10/30/19 08/27/21 History mcg (50,000 unit) capsule famotidine 20 mg tablet 20 mg PO BID 10/30/19 08/27/21 History magnesium chloride 64 mg 128 mg PO TID tab 10/30/19 08/27/21 History (magnesium chloride) tablet,delayed release metoprolol tartrate 100 mg tablet 100 mg PO BID 10/30/19 08/27/21 History omega-3 fatty acids 1,000 mg 1,000 mg PO DAILY 10/30/19 08/27/21 History capsule (Fish Oil Concentrate) potassium chloride 20 mEq 40 meq PO BID tab 10/30/19 08/27/21 History tablet,extended release(part/cryst) prednisone 5 mg tablet 5 mg PO DAILY 10/30/19 08/27/21 History sirolimus 0.5 mg tablet 0.5 mg PO SUTUTHSA@09 10/30/19 08/27/21 History sulfamethoxazole 400 1 tab PO .COMPLEX 10/30/19 08/27/21 History mg-trimethoprim 80 mg tablet amitriptyline 10 mg tablet See Rx Instructions PO DAILY 04/16/21 08/27/21 History cholecalciferol (vitamin D3) 50 50 mcg PO DAILY tab 04/16/21 08/27/21 History mcg (2,000 unit) tablet lorazepam 0.5 mg tablet 0.5 mg PO DAILY PRN 04/16/21 08/27/21 History tacrolimus 0.5 mg capsule, 2 mg PO Q12H cap 04/16/21 08/27/21 History immediate-release amlodipine 2.5 mg tablet 5 mg PO DAILY #180 tab 08/26/21 08/27/21 Rx Patient History Medical History Acute renal injury Benign hypertension (04/03/13) CVA (cerebral infarction) (03/03/14) Double lung transplant (04/03/13) Hypertensive emergency (03/03/14) Interstitial lung disease Migraine Osteoporosis, unspecified Right sided weakness SCC (squamous cell carcinoma) Situational depression 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 Surgical History History of colonoscopy History of lung transplant lung transplant , double S/P ear surgery Family History Father Hypertension Kidney disease Mother Hypertension Kidney disease Stroke Denies family history of Ovarian cancer Prostate cancer Myocardial infarction Breast cancer Colorectal cancer Social History Smoking Status: Never smoker Second Hand Exposure: No; Do You Dip or Chew Tobacco: No; Tobacco Cessation Education Requested by Patient: No Hx Alcohol Use: No Hx Substance Use: No Preferred Language: Icelandic Communication Ability: Effective Visual Impairment: No Limitations Hearing Ability: Normal Calculus Tutor Required: No Beliefs That Will Affect Care: None marital status: Single Current Living Situation: Parent current occupational status: disabled Other Information That Helps Us Care for You: No Feels Safe at Home: Yes Safety Concerns: Feels Safe At This Time Childhood Exposure to Second-Hand Smoke: No caffeine: Yes during the past year weight has: increased > 10 lbs Dental Care, Regularly: No Physical Activity Frequency: Daily Seatbelt Use: always Sunscreen Use: Yes Assistive Devices: None Review of Systems Review of Systems: All systems reviewed & are unremarkable except as noted in HPI & below Physical Exam Physical Exam: General: Thin, chronically ill-appearing. Sitting up on edge of bed with high flow nasal cannula in place, tachypneic HEENT: Sclerae anicteric. Multiple lesions involving the scalp Lungs: Clear to auscultation bilaterally, no crackles or wheezes Cardiac: Tachycardic, regular, no murmurs Vascular: 2+ radial bilaterally. Abdomen: Soft, nontender Extremities: Well perfused, trace to 1+ edema to mid martinez bilaterally Psych: Alert orient x3 but sleepy Results & Data ([facility]) Vital Signs (Past 12 Hours) Vital Signs Temp Pulse Pulse Resp BP BP Pulse Ox 08/27/21 10:44 105 H 32 H 91 08/27/21 09:00 117 H 30 H 121/88 90 08/27/21 08:56 122 H 08/27/21 08:00 118 H 42 H 109/76 90 08/27/21 07:03 122 H 28 H 86 L 08/27/21 07:00 120 H 36 H 117/90 89 L 08/27/21 06:15 115 H 29 H 129/96 91 08/27/21 05:55 110 H 28 H 94 08/27/21 05:41 117 H 26 H 129/81 91 08/27/21 04:15 96/73 L 95 08/27/21 03:45 115 H 36 H 101/68 92 08/27/21 03:33 118 H 32 H 89 L 08/27/21 03:30 122 H 26 H 113/81 89 L 08/27/21 03:15 117 H 30 H 120/88 89 L 08/27/21 03:00 117 H 23 90 08/27/21 02:45 125 H 33 H 106/76 92 08/27/21 02:30 125 H 27 H 118/80 91 08/27/21 02:15 123 H 28 H 92 08/27/21 02:03 145 H 120/82 08/27/21 01:45 135 H 28 H 120/82 94 08/27/21 01:30 134 H 25 H 115/79 97 08/27/21 01:15 135 H 104/73 96 08/27/21 01:00 137 H 110/79 97 08/27/21 00:45 144 H 21 113/85 97 08/27/21 00:30 150 H 31 H 97 08/27/21 00:15 151 H 26 H 96 08/27/21 00:00 152 H 35 H 88 L 08/26/21 23:57 153 H 34 H 83 L 08/26/21 23:43 97.7 F 127 H 40 H 126/92 85 L PG Care Time/CCT Total # of Minutes Spent Total Time Spent with Patient: Total time spent is greater than 50% in coordination of care (as documented) at patient's floor/unit and/or counseling patient: Coding Level of Care Code 34907 Initial Inpt Care Lvl 3 Diagnoses ACS (acute coronary syndrome) I24.9
[2021-08-27] MEDS: INSULIN ASPART 100 UNITS/ML 3 ML PEN SC SCH ×4 (11:48→15:50)
--- NOTE | 2021-08-27 11:54 | Pharmacy Report ---
Pharmacy Glycemic Short Note 2 - Date of Service August 27, 2021 - Glycemic Short BSG Results (Last 24 hours): 08/27/21 08/27/21 08/27/21 00:14 00:20 03:23 Glucose 273 H POC Glucose 301 H* POC Glucose (other) 271 H 08/27/21 08/27/21 08/27/21 03:25 06:45 07:57 Glucose 205 H POC Glucose 324 H* 198 H POC Glucose (other) 08/27/21 08:05 Glucose POC Glucose 182 H POC Glucose (other) OUTPATIENT ANTIDIABETIC REGIMEN: * None (chronic prednisone 5 mg daily) * HbA1c 6.3% on 08/27/21 ASSESSMENT: * 66 yo M admitted for STEMI, resp failure, and TRINA with significant PMH of b/l lung txp (on chronic prednisone) * BSG's significantly elevated >300 mg/dL on admission. Low dose Lantus and insulin drip ordered. However, insulin drip was not started and BSG's declin ed to 182 mg/dL, noted 4 hours after Lantus monotherapy. Confirmed w Dr. Sandi PUENTE to manage basal/bolus at this time * Methylprednisolone 60 mg IV x1 this AM, but this has been changed to prednisone 5 mg daily * Will initiate Novolog q4h at slightly tighter than weight-based moderate stress estimate due to steroid use this AM * Will continue Lantus, but at low dose and only if BSG's are >140 mg/dL * Goal BSG range for ICU patient - 140-180 mg/dL (but Novolog goal range still 110-140 mg/dL which helps to keep BSG in the true goal range of 140-180 mg/dL) PLAN FOR INPATIENT GLYCEMIC CONTROL: * Basal insulin * Lantus 0-10 units SQ BID, based on BSG * Bolus insulin * NovoLog per scale ACHS or Q6hrs while NPO * Goal Range: 110-140 mg/dL * Correction Factor: 35 mg/dL/unit * Nutritional / Prandial insulin per carb ratio of 1 unit per 12 grams CHO consumed PLAN FOR DISCHARGE: * tbd
[2021-08-27] MEDS ORDERED: methylPREDNISolone 125 MG/2 ML VIAL IV SCH (12:00)
[2021-08-27] MEDS ORDERED: methylPREDNISolone 60 MG in SYRINGE 0 ML IV SCH (12:00)
--- NOTE | 2021-08-27 12:27 | Electrocardiogram Report ---
Test Reason : Blood Pressure : / mmHG Vent. Rate : 134 BPM Atrial Rate : 134 BPM P-R Int : 116 ms QRS Dur : 096 ms QT Int : 350 ms P-R-T Axes : 038 003 136 degrees QTc Int : 522 ms Sinus tachycardia Left atrial enlargement ST elevation consider inferior injury or acute infarct ACUTE MS / STEMI Marked ST abnormality, possible lateral subendocardial injury Abnormal ECG When compared with ECG of 27-AUG-2021 00:07, (unconfirmed) Significant changes have occurred Confirmed by Howard Carr ([id number]) on 08/27/2021 12:27:15 PM Referred By: REFERRED SELF Confirmed By:Howard Carr
--- NOTE | 2021-08-27 12:27 | Electrocardiogram Report ---
Test Reason : Blood Pressure : / mmHG Vent. Rate : 117 BPM Atrial Rate : 117 BPM P-R Int : 134 ms QRS Dur : 096 ms QT Int : 368 ms P-R-T Axes : 043 -06 137 degrees QTc Int : 513 ms Sinus tachycardia Possible Left atrial enlargement Marked ST abnormality, possible anterior subendocardial injury Abnormal ECG When compared with ECG of 27-AUG-2021 01:27, (unconfirmed) ST no longer elevated in Inferior leads ST less depressed in Anterolateral leads Confirmed by Howard Carr ([id number]) on 08/27/2021 12:27:40 PM Referred By: REFERRED SELF Confirmed By:Howard Carr
[2021-08-27 13:38] LABS: Appearance Urine Cloudy (Clear); Bacteria Urine Automated Negative (Negative); Bilirubin Urine Negative (Negative); Blood Urine 1+ (Negative); Color Urine Yellow; Epithelial Cell Urine Auto >30 /lpf (0-5); Glucose Urine UA Trace (Negative); Ketones Urine Negative (Negative); Leukocyte Esterase Urine Negative (Negative); Nitrite Urine Negative (Negative); Protein Urine 2+ (Negative); RBC Urine Automated 0-4 /hpf (0-4); Urobilinogen Urine Negative (Negative)
[2021-08-27 13:56] LABS: Renal Epithelial Cells Urine 0-5 /lpf (0-5); Sperm Urine Present (None Prsent)
[2021-08-27 13:57] LABS: Calcium Oxalate Crystals Urine Present (None Prsent)
[2021-08-27] MEDS ORDERED: LINEZOLID 600 MG/300 ML BAG IV SCH (14:00)
--- NOTE | 2021-08-27 16:13 | Billing Data ---
Date of Service August 27, 2021 Coding Level of Care Code 00464 Subseq Hosp Care Lvl 1
[2021-08-27] MEDS ORDERED: SODIUM BICARB 8.4% INJ 50 MEQ/50 ML SYR IV ONE ×2 (17:57→21:45)
[2021-08-27 18:01] LABS: iSTAT Allen Test Pass; iSTAT Art Bld Gas pCO2 Correct 48 mmHg (35-46); iSTAT Art Bld Gas pH Corrected 7.119 (7.35-7.45); iSTAT Arterial Blood Gas HCO3 16 meg/L (19-24); iSTAT Arterial Blood Gas pCO2 48 mmHg (35-46); iSTAT Arterial Blood Gas pH 7.12 (7.35-7.45); iSTAT Arterial Blood Gas pO2 86 mmHg (80-95); iSTAT Arterial Blood Gas pO2 C 86; iSTAT Carbon Dioxide 17 mmol/L (24-31); iSTAT FiO2 60 %; iSTAT Hematocrit 35 % (42-52); iSTAT Hemoglobin 11.9 g/dl (14.0-18.0); iSTAT Potassium 7.2 mmol/L (3.3-5.0); iSTAT Site L Radial; iSTAT Sodium 129 mmol/L (135-144)
[2021-08-27 18:50] LABS: Partial Thromboplastin Ratio 4.4
[2021-08-27 18:56] LABS: Partial Thromboplastin Time 115.3 Seconds (21.0-31.0)
[2021-08-27] MEDS ORDERED: SODIUM BICARB 8.4% INJ 50 MEQ/50 ML SYR IV STA (18:57)
[2021-08-27 19:17] LABS: BUN Creatinine Ratio 12.8 (10-20); Calcium 7.7 mg/dl (8.5-10.1); Est GFR (African American) 14.5 ml/min; Est GFR (Non-African American) 12.5 ml/min; Potassium 7.2 mmol/L (3.5-5.1); Troponin I 34.5 ng/ml (0-0.045)
[2021-08-27] MEDS ORDERED: CALCIUM GLUCONATE 10% 1,000 MG in SODIUM CHLORIDE 0.9% 50 ML IV ONE (19:31)
[2021-08-27] MEDS ORDERED: DEXTROSE 50% 50 ML SYRINGE IV STA (19:32)
[2021-08-27] MEDS ORDERED: INSULIN HUMAN REGULAR PER UNIT 10 UNITS in SYRINGE 0 ML IV STA (19:32)
[2021-08-27 19:34] LABS: iSTAT Allen Test Pass; iSTAT Arterial Blood Gas HCO3 18 meg/L (19-24); iSTAT Arterial Blood Gas pCO2 49 mmHg (35-46); iSTAT Arterial Blood Gas pH 7.18 (7.35-7.45); iSTAT Arterial Blood Gas pO2 92 mmHg (80-95); iSTAT Carbon Dioxide 20 mmol/L (24-31); iSTAT FiO2 40 %; iSTAT Site R Radial
[2021-08-27] MEDS ORDERED: SODIUM BICARBONATE 8.4% 150 MEQ in WATER, STERILE 1,000 ML IV SCH (19:45)
[2021-08-27] MEDS ORDERED: INSULIN HUMAN REGULAR PER UNIT 10 UNITS in SYRINGE 9.9 ML IV SCH (19:45)
[2021-08-27] MEDS ORDERED: INSULIN GLARGINE SOLOSTAR 100 UNITS/ML 3 ML PEN SC SCH (20:00)
--- NOTE | 2021-08-27 20:26 | Death Pronouncement Note ---
Date of Service August 27, 2021 Pronouncement Note Admission Date Admission Date: August 27, 2021 Contributing Factors (1) Acute respiratory failure with hypoxia: (2) Multifocal pneumonia: (3) Acute kidney injury superimposed on CKD: (4) ST elevation [place] (STEMI): (5) RSV (respiratory syncytial virus pneumonia): (6) Hypomagnesemia: (7) Immunocompromised patient: (8) SCC (squamous cell carcinoma): (9) Situational depression: (10) Chronic disease anemia: (11) Benign hypertension: Hospital Course Hospital Course: PRONOUNCEMENT NOTE - Date: 07/07/2021 Time: 2008 This evening patient's clinical status continued to decline rapidly. Patient's renal function significantly worsened and he was now hyperkalemic and severely acidotic. Repeat ABG showed worsening pH despite bicarbonate administration. Bicarb drip, calcium gluconate, and insulin dextrose were ordered. Pulmonary status had continued to worsen as well and he was requiring BiPAP. I did speak with the patient's family this evening and they were coming to the bedside to discuss the patient's clinical course. His prognosis was poor and he was now entering multisystem organ failure. Unfortunately, patient entered PEA rhythm. His CODE STATUS was conditional code with no shocks/no compressions in the event of cardiac arrest. He did receive epinephrine, bicarb, calcium gluconate, and insulin in dextrose during CODE BLUE but was unresponsive to these therapies. Code Blue was stopped after patient was unresponsive to therapy and he was pronounced by myself at 200808/27/2021. Assessment: Patient was found to be in a terminal state. Pupils were fixed and dilated without response. No palpable pulses appreciated. No spontaneous breaths noted. Heart sounds were absent. No response to painful stimuli. Family presented to bedside following cardiac arrest. Appropriate response to grief appreciated. Condolences provided. Questions were addressed and emotional support was provided. Patients primary service was contacted and made aware of patient demise. Pronouncement section of the Certificate was filled out and signed by myself. Cause of : Primary -STEMI Secondary -acute renal failure Contributing Causes of -RSV pneumonia, interstitial lung disease, acute heart failure, metabolic acidosis Please feel free to contact me with any questions regarding the above-mentioned course. Additional Data Attending physician: Dariusz Banuelos DO Coding Level of Care Code None Diagnoses Acute respiratory failure with hypoxia J96.01 Multifocal pneumonia J18.9 Acute kidney injury superimposed on CKD N17.9; N18.9 ST elevation UT (STEMI) I21.3 Involved coronary artery: unspecified coronary artery RSV (respiratory syncytial virus pneumonia) J12.1 Hypomagnesemia E83.42 Immunocompromised patient D84.9 SCC (squamous cell carcinoma) C44.92 Situational depression F43.21 Chronic disease anemia D63.8 Benign hypertension I10
--- NOTE | 2021-08-28 05:24 | Billing Data ---
Date of Service August 28, 2021 Coding Level of Care Code Critical Care 1st -74 mins
[2021-08-28] MEDS ORDERED: FAMOTIDINE 20 MG in SYRINGE 3 ML IV SCH (09:00)
[2021-08-28] MEDS ORDERED: SIROLIMUS 0.5 MG TABLET PO SCH (09:00)
--- NOTE | 2021-08-30 18:59 | Discharge Summary ---
Date of Service August 27, 2021 Admission HPI Per Admitting Provider 66 yo M Hx idiopathic pulmonary fibrosis s/p bilateral lung transplant on chronic immunosuppressive therapy, chronic SCC of the scalp, hypertension, CKD, migraine headache presented to the ER for several days of cough with development of shortness of breath late last evening around 10 PM. Over the weekend also reports that he had poor p.o. intake secondary to illness, and in general has relatively poor p.o. intake. Patient himself denies fevers but admits to chills over the weekend. Denies nausea, vomiting, diarrhea, constipation, urinary symptoms. Denies chest pains. Principal Diagnosis STEMI, respiratory failure Discharge Data Allergies Allergy/AdvReac Type Severity Reaction Status Date / Time colistin Allergy Mild cough Verified 08/27/21 00:42 sirolimus [From Rapamune] Allergy Mild Rash Verified 08/27/21 00:42 tiotropium AdvReac Severe UNABLE TO Verified 08/27/21 00:42 VOID fluticasone AdvReac Intermediate THRUSH,RASH Verified 08/27/21 00:42 HEADACHE salmeterol AdvReac Intermediate THRUSH,RASH Verified 08/27/21 00:42 HEADACHE aspirin AdvReac Unknown CONTRAINDIC Verified 08/27/21 00:42 ATED NSAIDS (Non-Steroidal AdvReac Unknown CONTRAINDIC Verified 08/27/21 00:42 Anti-Inflamma ATED Consultations 08/27/21 05:38 Consult Cardiology Routine Consult Patient Safety Tech Routine Consult Nephrology Routine Ordered Studies 08/27/21 06:09 US venous doppler [facility] Routine Hospital Course (1) ACS (acute coronary syndrome): (2) Lung transplant status, bilateral: (3) Multifocal pneumonia: (4) Acute kidney injury superimposed on CKD: (5) Hypomagnesemia: (6) ST elevation [place] (STEMI): (7) RSV (respiratory syncytial virus pneumonia): (8) Immunocompromised patient: (9) Situational depression: (10) 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 Neuro: Anxiety: Continue home lorazepam 0.5mg PO daily as needed for anxiety. Cardiac - STEMI: Presented with complaints of worsening SOB. Troponin elevated to 15; EKG noted to have ST elevations in inferior leads with reciprocal depressions in lateral leads. Patient started on heparin gtt. Dr. Ruiz notified; due to renal function will optimize medically until renal function improves. A1c and lipid panel ordered. Echo in AM. Would benefit from DAPT; contraindication listed to aspirin in the chart. Patient is on metoprolol tartrate 100mg BID. Continue this with as needed Lopressor IV for tachycardia if BP can tolerate. Respiratory - Acute hypoxic respiratory failure: In the setting of Hx bilateral lung transplant for idiopathic pulmonary fibrosis. Patient is on sirolimus/tacrolimus chronically for immunosuppression, as well as daily oral prednisone therapy. Currently requiring 6L Oxymask; does not wear oxygen at baseline. Titrate supplemental oxygen as needed. Patient is amenable to intubation should that be necessary. XR with bilateral infiltrates suggesting pneumonia. D dimer elevated to 23,000 with frequent travel by car to [place] for medical care. Unable to perform CT PE protocol due to acute renal failure. Is on Heparin gtt given STEMI. Case discussed with Dr. Angelica Leonard with [facility] Department of Pulmonary, Allergy and Critical Care Medicine. Recommended azithromycin/vancomycin/Zosyn for antibiotic coverage. Vancomycin deferred in favor of Linezolid given TRINA. Scheduled Xopenex nebs q6h ordered with nebs q2h prn SOB. Solumedrol 60mg IV q8h ordered. Idiopathic pulmonary fibrosis s/p bilateral lung transplant: Chronically on tacrolimus/sirolimus for immune suppression. Holding PO steroids in favor of IV Solumedrol 60mg q8h. GI - No present GI concerns. Heart healthy, DM2 diet. Famotidine 20mg IV BID for GI ppx. RENAL/LYTES - TRINA on CKD: History of arterionephrosclerosis. Patient has a baseline creatinine of 1.9-2.3; presents today with creatinine 4.42. BUN/Cr ratio <20. Did receive NSS 250cc bolus in ER. Urine and serum lytes/osmolality ordered. Avoiding renal toxic medications as able. Nephrology consulted. Hypomagnesemia/Hypocalcemia: Mg 1.5. ICal 1.10 on admission. Received Mag Sulfate 1g IV in ER. Continue to replace lytes as needed. - No concerns at this time. ENDO - Hyperglycemia: Noted on admission to have BSG 273. Patient does not have a history of DM2; is on daily oral prednisone and will be receiving stress dose steroids while admitted. ICU hyperglycemia protocol ordered. Will receive 6u Lantus now with SSI and adjustment as needed. DM2 diet. A1c pending. Adrenal insufficiency: History of chronic oral prednisone therapy. Given this and acute significant illness, as well as respiratory status, Solumedrol 60mg IV q8h ordered. HEME - Hgb baseline ~12; on admission with Hgb 11.0. No history of bloody/dark stools, hematuria, hemoptysis, hematemesis. Daily CBC in the setting of Heparin gtt. ID - RSV; CAP in immunocompromised patient: Patient's illness started on Wednesday and became acutely worse last evening prompting ER visit. Currently requiring 6L Oxymask. Patient is on sirolimus/tacrolimus chronically for immunosuppression given Hx lung transplant. Presented with WBC count 12.09, elevated CRP. RSV positive on viral panel; COVID 19 testing negative. CXR with bilateral lower lung hazy opacities with concern for pneumonia. Azithromycin/Zosyn/Linezolid as described above. Blood cultures collected. INTEGUMENTARY - SCC scalp: Chronic issue, follows with Dermatology in [place] and has received both Mohs surgery in July and radiation for this. No complaints at this time. No evidence of cellulitis. DVT PROPHYLAXIS - Heparin gtt. CODE STATUS: CONDITIONAL Patient does NOT desire defibrillation or chest compressions in the event of a cardiac arrest. He is otherwise amenable to other cardiac interventions such as pacing, catheterization, and ACLS medications. He is amenable to intubation and mechanical ventilation in the event of impending respiratory failure requiring intubation. This decision was discussed with the patient with his daughter in attendance. Above was working assessment and plan. Unfortunately as the day progressedsee ICU notespatient became progressively more acidotic, and his pulmonary status worsened to where he is requiring BiPAP. He arrestedand in accordance with his CODE STATUS, his PEA was managed with medications, but not compressions, and unfortunately he passed at 2008, 08/27/2021. Please see note documented by ICU staff for more direct details of event. Unfortunately was a very comorbid man with a very big acute problem, who unfortunately was unable to survive the insult to his wellbeing. 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
--- NOTE | 2021-09-03 15:51 | Coding Query ---
SEPSIS To promote full compliance with coding requirements relating to patient care, physician participation is requested in all cases of technical systems architect uncertainty. Please assist us with the question(s) below: In responding to this query, please exercise your independent professional judgement. The fact that a question is asked does not imply that any particular answer is desired or expected. We appreciate your clarification on this issue. The medical record reflects the following clinical findings: Pt admitted with STEMI, Pneumonia and Acute Respiratory Faillure. Hospitalist note 08/27 Under Supervisory Physician documents Sepsis . Seeking to clarify if Sepsis was treated. Thank you . Caleb LincolnBAIT PAINTER [facility]CS ____ ( )Bacteremia (Nonspecific laboratory finding of bacteria in the blood) Specify Organism ( ) Present on Admission ( ) Not present on admission ( ) Unable to clinically determine ( ) Septicemia (Systemic disease associated with the presence of pathogenic microorganisms in the blood): Specify Organism ( ) Present on Admission ( ) Not present on admission ( ) Unable to clinically determine ( x) Sepsis Specify Organism Specify Associated Condition/Diagnosis ( x) Present on Admission ( ) Not present on admission ( ) Unable to clinically determine x( ) Severe Sepsis (Sepsis associated with acute organ dysfunction) Specify Organism Specify Associated Condition/Diagnosis (x ) Present on Admission ( ) Not present on admission () Unable to clinically determine ( ) Septic Shock (Severe sepsis with acute circulatory failure, unexplained by other causes) ( ) Present on Admission ( ) Not present on admission ( ) Unable to clinically determine ( ) Other, patient has: MTDD
== END 2021-08-27 21:46 | disposition expired | DRG 871 ==
LOC: ED 23:34 → 1E 08-27 02:52 → SUATTDRO 08-27 02:52 → 1E 08-27 04:48